=== PATIENT | female | born 1945 | race Caucasian/White ===

== ENCOUNTER 2021-08-31 17:06 | Inpatient (IN) | payer MEDICARE, OTHER ==
[2021-08-31 18:09] LABS: Anisocytosis Slight; Basophils % (A) 0 %; Eosinophils # (A) 0.3 k/uL (0-0.7); Eosinophils % (A) 3 %; HCT 27.6 % (34.0-46.0); HGB 9.1 gm/dL (11.4-16.0); Lymphocytes # (A) 1.9 k/uL (1.0-4.8); Lymphocytes % (A) 23 %; MCH 27.2 pg (25.0-35.0); MCV 82.4 fL (80.0-100.0); Mean Platelet Volume 9.1; Monocytes # (A) 0.5 k/uL (0-1.0); Monocytes % (A) 6 %; Neutrophils # (A) 5.4 k/uL (1.3-7.7); Neutrophils % (A) 65 %; Platelet Count 167 k/uL (150-450); RBC 3.35 m/uL (3.80-5.40); RDW 17.8 % (11.5-15.5); WBC 8.3 k/uL (3.8-10.6)
[2021-08-31 18:24] LABS: Albumin 3.1 g/dL (3.5-5.0); Calcium 8.9 mg/dL (8.4-10.2); Magnesium 1.3 mg/dL (1.6-2.3); Potassium 4.4 mmol/L (3.5-5.1); Total Bilirubin 0.4 mg/dL (0.2-1.3); Total Protein 6.1 g/dL (6.3-8.2)
[2021-08-31 18:26] LABS: Partial Thromboplastin Time 22.3 sec (22.0-30.0); Prothrombin Time 10.6 sec (9.0-12.0)
--- NOTE | 2021-08-31 19:17 | US ---
EXAMINATION TYPE: US venous doppler duplex LE LT DATE OF EXAM: 08/31/2021 5:43 PM COMPARISON: NONE CLINICAL HISTORY: swelling, pain. Patient fell and scraped her left knee. She states no pain or swell ing SIDE PERFORMED: Left TECHNIQUE: The lower extremity deep venous system is examined utilizing real time linear array sonog gerson with graded compression, doppler sonography and color-flow sonography. VESSELS IMAGED: Common Femoral Vein Deep Femoral Vein Greater Saphenous Vein * Femoral Vein Popliteal Vein Small Saphenous Vein * Proximal Calf Veins (* superficial vessels) FINDINGS: Grayscale, color doppler, spectral doppler imaging performed of the deep veins of the lower extremities. There is normal flow, compressibility, vascular waveforms. IMPRESSION: Negative for DVT, left lower extremity.
[2021-08-31] MEDS ORDERED: NALOXONE 0.4 MG/ML 1 ML VIAL IV PRN (20:15)
--- NOTE | 2021-08-31 20:15 | ED ---
Chest Pain HPI - General Chief Complaint: Chest Pain Stated Complaint: Chest Pain Time Seen by Provider: 08/31/21 17:10 Source: patient, EMS Mode of arrival: EMS Limitations: no limitations - History of Present Illness Initial Comments: 76-year-old female presents to the emergency room as a transfer from [facility]. She does have a significant history of coronary disease with "9 stents" in her heart. States that there are placed at [facility]. He was out shopping today when she had sudden onset of crushing chest pain. She is taken in the [facility] by EMS. Laboratory studies demonstrated a troponin of 0.039. They did not heparinize the patient as she had a history of a subdural from a fall earlier this year. They transferred her here for cardiac evaluation. Upon arrival patient states that the pain is only 2 out of 10. It was improved with morphine. States that she took "10 nitro tablets" and did not have any improvement. She denies shortness of breath. Admits to some nausea without vomiting. No diaphoresis. Patient does have some slurred speech which is chronic from a previous stroke. Patient is not currently on any blood thinners. On physical exam patient has notable swelling to the left lower extremity. States that she injured it earlier today. Denies history of DVT or PE. She was given an aspirin at the outside facility. No other alleviating, precipitating or modifying factors - Related Data Home Medications Medication Instructions Recorded Confirmed Atorvastatin Calcium [Lipitor] 40 mg PO HS 08/31/21 08/31/21 Cholecalciferol [Vitamin D3 (25 50 mcg PO DAILY 08/31/21 08/31/21 Mcg = 1000 Iu)] Ezetimibe [Zetia] 10 mg PO DAILY 08/31/21 08/31/21 Ibuprofen [Motrin] 800 mg PO Q8H PRN 08/31/21 08/31/21 Isosorbide Dinitrate 5 mg PO BID 08/31/21 08/31/21 Nitroglycerin Sl Tabs [Nitrostat] 0.4 mg SL Q5M PRN 08/31/21 08/31/21 Omeprazole 40 mg PO DAILY 08/31/21 08/31/21 Pramipexole [Mirapex] 1 mg PO HS 08/31/21 08/31/21 Scopolamine [Scopolamine 1 MG/72 1 patch TRANSDERM Q72H PRN 08/31/21 08/31/21 HR patch] Sertraline HCl [Zoloft] 100 mg PO DAILY 08/31/21 08/31/21 Sotalol [Betapace] 80 mg PO DAILY 08/31/21 08/31/21 bisacodyL [Dulcolax] 10 mg RECTAL DAILY PRN 08/31/21 08/31/21 clonazePAM [KlonoPIN] 0.5 mg PO BID PRN 08/31/21 08/31/21 lisinopriL [Zestril] 2.5 mg PO DAILY 08/31/21 08/31/21 Allergies Allergy/AdvReac Type Severity Reaction Status Date / Time gabapentin [From Neurontin] Allergy Unknown Verified 08/31/21 18:21 lactulose Allergy Unknown Verified 08/31/21 18:21 oxycodone Allergy Unknown Verified 08/31/21 18:21 ropinirole [From Requip] Allergy Unknown Verified 08/31/21 18:21 ticagrelor [From Brilinta] Allergy Unknown Verified 08/31/21 18:21 cyclobenzaprine AdvReac Hallucinati Verified 08/31/21 18:21 ons Review of Systems ROS Statement: Those systems with pertinent positive or pertinent negative responses have been documented in the HPI. ROS Other: All systems not noted in ROS Statement are negative. EKG Findings - EKG Comments: EKG Findings:: EKG at 1833 demonstrates sinus rhythm with PACs and PVCs. Rate of 81. CA interval 172. Distress 108. QTC of 487. No acute ST segment elevation. Inverted T-wave in 3 and aVF. Repeat EKG at 2035 demonstrates a sinus rhythm with PACs. Rate of 85. CA interval 160. QRS 116. QTC of 509. No acute ST segment elevation or depression. Past Medical History Past Medical History: Atrial Fibrillation, Blood Disorder, Cancer, Chest Pain / Angina, Heart Failure, CVA/TIA, Diabetes Mellitus, GERD/Reflux, Hyperlipidemia, Hypertension, Myocardial Infarction (OR), Renal Disease, Respiratory Disorder, Sleep Apnea/CPAP/BIPAP, Thyroid Disorder, Vascular Disorder History of Any Multi-Drug Resistant Organisms: None Reported Past Surgical History: Back Surgery, Breast Surgery, Heart Catheterization With Stent Past Psychological History: Anxiety, Depression Smoking Status: Current every day smoker Past Alcohol Use History: None Reported Past Drug Use History: None Reported - Past Family History Father Family Medical History: Cancer, Coronary Artery Disease (CAD) Mother Family Medical History: Cancer General Exam Limitations: physical limitation (some dysarthria after previous stroke) General appearance: alert, in no apparent distress Head exam: Present: atraumatic, normocephalic, normal inspection Eye exam: Present: normal appearance, PERRL, EOMI. Absent: scleral icterus, conjunctival injection, periorbital swelling ENT exam: Present: normal exam, mucous membranes moist Neck exam: Present: normal inspection. Absent: tenderness, meningismus, lymphadenopathy Respiratory exam: Present: normal lung sounds bilaterally. Absent: respiratory distress, wheezes, rales, rhonchi, stridor Cardiovascular Exam: Present: regular rate, normal rhythm, normal heart sounds. Absent: systolic murmur, diastolic murmur, rubs, gallop, clicks GI/Abdominal exam: Present: soft, normal bowel sounds. Absent: distended, tenderness, guarding, rebound, rigid Extremities exam: Present: full ROM, normal capillary refill, pedal edema (left leg). Absent: tenderness, joint swelling, calf tenderness Back exam: Present: normal inspection Neurological exam: Present: alert, oriented X3, CN II-XII intact Psychiatric exam: Present: normal affect, normal mood Skin exam: Present: warm, dry, intact, normal color. Absent: rash Course Vital Signs 08/31/21 08/31/21 08/31/21 17:10 19:07 20:27 Temperature 98.0 F Pulse Rate 69 85 75 Respiratory 16 18 16 Rate Blood Pressure 162/78 172/83 159/92 O2 Sat by Pulse 98 97 97 Oximetry Chest Pain MDM - MDM Upon arrival patient is placed into room 23. A thorough history and physical exam was performed. Repeat laboratory studies are performed. Troponin 0.053. Patient already received an aspirin. Patient will not be heparinized due to recent history of subdural hemorrhage. Patient does have recurrence of her pain and a repeat EKG is performed which demonstrates no acute ST segment elevation. Recommended admission in order to continue to trend her troponins. Patient agreed to this. Spoke with Brendan from [facility] who agreed to admit the patient. She was taken to the floor in stable condition Disposition Clinical Impression: Chest pain Disposition: ADMITTED IP TO THIS HOSP Condition: Stable Is patient prescribed a controlled substance at d/c from ED?: No Decision to Admit Reason: Admit from EC Decision Date: 08/31/21 Decision Time: 20:15
[2021-08-31 21:19] LABS: Glucose,Whole Blood 195 mg/dL (75-99)
[2021-08-31] MEDS: MORPHINE SULFATE 4 MG/ML SYRINGE IV PRN (21:58)
[2021-08-31] MEDS: MAGNESIUM SULFATE-D5W PMX 1 GM in DEXTROSE/WATER 1 100ML.BAG IVPB SCH ×2 (22:00→23:44)
[2021-08-31] MEDS ORDERED: NITROGLYCERIN SL TABS 0.4 MG TAB SUBLINGUAL PRN (22:55)
[2021-08-31] MEDS: ATORVASTATIN 40 MG TAB PO SCH (23:45)
[2021-08-31] MEDS: PRAMIPEXOLE 1 MG TAB PO SCH (23:45)
[2021-08-31] MEDS: NITROGLYCERIN OINT 1 INCH/GM PACKET TOPICAL SCH (23:45)
[2021-08-31] MEDS: carvediloL 3.125 MG TAB PO SCH (23:45)
[2021-08-31] MEDS: ISOSORBIDE DINITRATE 10 MG TAB PO SCH (23:45)
[2021-09-01] MEDS: MORPHINE SULFATE 4 MG/ML SYRINGE IV PRN (04:10)
[2021-09-01 06:16] LABS: Glucose,Whole Blood 160 mg/dL (75-99)
[2021-09-01] MEDS: carvediloL 3.125 MG TAB PO SCH (06:20)
[2021-09-01] MEDS: NITROGLYCERIN OINT 1 INCH/GM PACKET TOPICAL SCH ×4 (06:23→23:33)
[2021-09-01 07:58] LABS: Anisocytosis Slight; Basophils % (A) 0 %; Eosinophils # (A) 0.2 k/uL (0-0.7); Eosinophils % (A) 3 %; HCT 25.2 % (34.0-46.0); HGB 7.9 gm/dL (11.4-16.0); Hypochromasia Slight; Lymphocytes # (A) 1.2 k/uL (1.0-4.8); Lymphocytes % (A) 19 %; MCH 27.1 pg (25.0-35.0); MCHC 31.4 g/dL (31.0-37.0); MCV 86.3 fL (80.0-100.0); Mean Platelet Volume 8.9; Monocytes # (A) 0.4 k/uL (0-1.0); Monocytes % (A) 6 %; Neutrophils # (A) 4.3 k/uL (1.3-7.7); Neutrophils % (A) 69 %; Platelet Count 142 k/uL (150-450); RBC 2.92 m/uL (3.80-5.40); RDW 17.7 % (11.5-15.5); WBC 6.2 k/uL (3.8-10.6)
[2021-09-01 08:19] LABS: Magnesium 1.8 mg/dL (1.6-2.3); Potassium 4.2 mmol/L (3.5-5.1)
[2021-09-01] MEDS: ISOSORBIDE DINITRATE 10 MG TAB PO SCH ×2 (08:47→20:32)
[2021-09-01] MEDS: LOSARTAN 25 MG TAB PO SCH (10:06)
--- NOTE | 2021-09-01 10:39 | CT ---
EXAMINATION TYPE: CT brain wo con DATE OF EXAM: 09/01/2021 HISTORY: Fall, weakness, ruling out hematoma CT DLP: 1143.4 mGycm. Automated Exposure Control for Dose Reduction was Utilized. TECHNIQUE: CT scan of the head is performed without contrast. COMPARISON: None. FINDINGS: There is no acute intracranial hemorrhage or midline shift identified. There is mild to m oderate diffuse ventricular and sulcal prominence consistent with diffuse age-related cerebral atroph y. There is moderate low-attenuation in the periventricular white matter consistent with chronic sma ll vessel ischemic change. Old infarct or encephalomalacia left coronal radiata posterior inferior l eft frontal region. The calvarium is intact. The globes are intact and the visualized sinuses are marielena ar. IMPRESSION: No acute intracranial hemorrhage or midline shift. There is mild to moderate diffuse ag e-related cerebral atrophy and moderate chronic small vessel ischemic change along with old left-side d posterior inferior frontal lobe infarct all noted.
[2021-09-01] MEDS ORDERED: HEPARIN SODIUM 1,000 UN/ML (10ML VL) IV ONE (11:48)
[2021-09-01] MEDS ORDERED: HEPARIN SODIUM 1,000 UN/ML (10ML VL) IV PRN (11:48)
[2021-09-01 11:58] LABS: Glucose,Whole Blood 134 mg/dL (75-99)
[2021-09-01] MEDS ORDERED: HEPARIN SOD,PORK IN 0.45% NACL 25,000 UNIT in 0.45% NACL 1 250ML.BAG IV SCH (12:00)
--- NOTE | 2021-09-01 12:00 | ECHOF ---
Referral Reason:Chest pain MEASUREMENTS -------- HEIGHT: 165.1 cm WEIGHT: 56.2 kg BP: 125/66 RVIDd: 2.8 cm (< 3.3) IVSd: 1.1 cm (0.6 - 1.1) LVIDd: 4.2 cm (3.9 - 5.3) LVPWd: 1.3 cm (0.6 - 1.1) IVSs: 1.7 cm LVIDs: 3.0 cm LVPWs: 1.7 cm LA Diam: 3.9 cm (2.7 - 3.8) LAESV Index (A-L): 34.28 ml/m Ao Diam: 3.0 cm (2.0 - 3.7) MV EXCURSION: 14.967 mm (> 18.000) MV EF SLOPE: 61 mm/s (70 - 150) EPSS: 0.4 cm MV E Miguel: 1.11 m/s MV DecT: 248 ms MV A Miguel: 1.28 m/s MV E/A Ratio: 0.87 RAP: 5.00 mmHg RVSP: 35.33 mmHg FINDINGS -------- Sinus rhythm. This was a technically adequate study. The left ventricular size is normal. There is mild concentric left ventricular hypertrophy. Overa ll left ventricular systolic function is normal with, an EF between 60 - 65 %. The right ventricle is normal in size. LA is moderately dilated 34-39 ml/m2 The right atrium is normal in size. Interatrial and interventricular septum intact. There is mild aortic valve sclerosis. The mitral valve leaflets are mildly thickened. Mild mitral annular calcification present. Mild tricuspid regurgitation present. There is mild pulmonary hypertension. The right ventricular systolic pressure, as measured by Doppler, is 35.33mmHg. Trace/mild (physiologic) pulmonic regurgitation. The aortic root size is normal. Normal inferior vena cava with normal inspiratory collapse consistent with estimated right atrial pre ssure of 5 mmHg. There is no pericardial effusion. CONCLUSIONS -------- 1. The left ventricular size is normal. 2. There is mild concentric left ventricular hypertrophy. 3. Overall left ventricular systolic function is normal with, an EF between 60 - 65 %. 4. LA is moderately dilated 34-39 ml/m2 5. There is mild aortic valve sclerosis. 6. The mitral valve leaflets are mildly thickened. 7. Mild mitral annular calcification present. 8. Mild tricuspid regurgitation present. 9. There is mild pulmonary hypertension. 10. The right ventricular systolic pressure, as measured by Doppler, is 35.33mmHg. 11. Trace/mild (physiologic) pulmonic regurgitation. 12. There is no pericardial effusion. [employer] SPECIALIST: Phyllis Meléndez RDCS
[2021-09-01 13:07] LABS: Anisocytosis Slight; Basophils % (A) 0 %; Eosinophils # (A) 0.2 k/uL (0-0.7); Eosinophils % (A) 3 %; HCT 26.6 % (34.0-46.0); HGB 8.6 gm/dL (11.4-16.0); Hypochromasia Slight; Lymphocytes % (A) 13 %; MCH 27.4 pg (25.0-35.0); MCHC 32.4 g/dL (31.0-37.0); MCV 84.3 fL (80.0-100.0); Mean Platelet Volume 9.2; Monocytes # (A) 0.3 k/uL (0-1.0); Monocytes % (A) 4 %; Neutrophils # (A) 6.4 k/uL (1.3-7.7); Neutrophils % (A) 80 %; Platelet Count 160 k/uL (150-450); RBC 3.16 m/uL (3.80-5.40); RDW 17.8 % (11.5-15.5)
--- NOTE | 2021-09-01 13:07 | P.CNNES ---
History of Present Illness Consult date: 09/01/21 Requesting physician: Bear Williamson Reason for Consult: heparin drip; hx of subdural hematoma 4 months ago, hx of cva History of Present Illness: This is a 76-year-old woman with medical history of stroke with residual right leg weakness, subdural hematoma 05/2021 from a fall, atrial fibrillation, diabetes mellitus, coronary artery disease status post stent, hypertension, hypothyroidism who was transferred from outside facility for for further evaluation of chest pain. Neurology is consulted for use of heparin drip especially with a history of a subdural about 4 month ago. She stated that she had a stroke in general 2020 and she had residual some weakness over the right leg and then the she has these recurrent falls and she had a fall in May as a result she had some subdural she had workup for her stroke as well as for the subdural and she said that she has upcoming appointment with Dr. Krishnan for neurological care. She denies a being on anticoagulation for the atrial fibrillation that. She said that she intermittently takes the low dose aspirin a home. She said that she uses a walker at home and feel dizzy since was on so many medication in the past. She denies off any focal weakness, numbness, visual disturbance, difficulty getting her words out. Regarding the home medication the patient is on Lipitor 40 mg daily at bedtime. Most recent vitals: His blood pressure of 125/66, heart rate of 67, respiratory of 18, temperature of 98.1 Fahrenheit oral pulse ox of 95% room air. Patient the most recent serum glucose is 137, potassium is 4.2, sodium is 140, creatinine is 0.92, the troponin is the most recent one is up 0.076 and slightly trending up. CT of the head on 09/01/2021 is reported as acute intracranial hemorrhage or midline shift. There is mild to moderate diffuse age-related cerebral atrophy and moderate chronic small vessel ischemic change along with old left-sided posterior inferior frontal lobe infarct. In the body reported it is mentioned that there is old infarct or encephalomalacia over the left manuel radiata posterior inferior left inferior region Review of Systems Review of system: The 12 point system was reviewed and apparent positive and negative per HPI. Past Medical History Past Medical History: Atrial Fibrillation, Blood Disorder, Cancer, Chest Pain / Angina, Heart Failure, CVA/TIA, Diabetes Mellitus, GERD/Reflux, Hyperlipidemia, Hypertension, Myocardial Infarction (NM), Renal Disease, Respiratory Disorder, Sleep Apnea/CPAP/BIPAP, Thyroid Disorder, Vascular Disorder Additional Past Medical History / Comment(s): breast cancer and ovarian. Radiation (not current), subdural hematoma may 2020 Last Myocardial Infarction Date:: 2018 History of Any Multi-Drug Resistant Organisms: None Reported Past Surgical History: Back Surgery, Breast Surgery, Heart Catheterization With Stent Additional Past Surgical History / Comment(s): 10 heart stents Past Anesthesia/Blood Transfusion Reactions: No Reported Reaction Date of Last Stent Placement:: 2018 Past Psychological History: Anxiety, Depression Smoking Status: Current every day smoker Past Alcohol Use History: None Reported Past Drug Use History: None Reported - Past Family History Father Family Medical History: Cancer, Coronary Artery Disease (CAD) Mother Family Medical History: Cancer Medications and Allergies Home Medications Medication Instructions Recorded Confirmed Type Atorvastatin Calcium [Lipitor] 40 mg PO HS 08/31/21 08/31/21 History Cholecalciferol [Vitamin D3 (25 50 mcg PO DAILY 08/31/21 08/31/21 History Mcg = 1000 Iu)] Ezetimibe [Zetia] 10 mg PO DAILY 08/31/21 08/31/21 History Ibuprofen [Motrin] 800 mg PO Q8H PRN 08/31/21 08/31/21 History Isosorbide Dinitrate 5 mg PO BID 08/31/21 08/31/21 History Nitroglycerin Sl Tabs [Nitrostat] 0.4 mg SL Q5M PRN 08/31/21 08/31/21 History Omeprazole 40 mg PO DAILY 08/31/21 08/31/21 History Pramipexole [Mirapex] 1 mg PO HS 08/31/21 08/31/21 History Scopolamine [Scopolamine 1 MG/72 1 patch TRANSDERM Q72H PRN 08/31/21 08/31/21 History HR patch] Sertraline HCl [Zoloft] 100 mg PO DAILY 08/31/21 08/31/21 History Sotalol [Betapace] 80 mg PO DAILY 08/31/21 08/31/21 History bisacodyL [Dulcolax] 10 mg RECTAL DAILY PRN 08/31/21 08/31/21 History clonazePAM [KlonoPIN] 0.5 mg PO BID PRN 08/31/21 08/31/21 History lisinopriL [Zestril] 2.5 mg PO DAILY 08/31/21 08/31/21 History Allergies Allergy/AdvReac Type Severity Reaction Status Date / Time gabapentin [From Neurontin] Allergy Unknown Verified 08/31/21 18:21 lactulose Allergy Unknown Verified 08/31/21 18:21 oxycodone Allergy Unknown Verified 08/31/21 18:21 ropinirole [From Requip] Allergy Unknown Verified 08/31/21 18:21 ticagrelor [From Brilinta] Allergy Unknown Verified 08/31/21 18:21 cyclobenzaprine AdvReac Hallucinati Verified 08/31/21 18:21 ons Physical Examination - Vital Signs Vital Signs: Vital Signs Temp Pulse Pulse Resp BP BP Pulse Ox 09/01/21 08:02 98.1 F 67 18 125/66 95 09/01/21 06:19 103/54 09/01/21 03:54 98.3 F 70 16 95/54 95 09/01/21 00:00 97.7 F 78 18 173/74 100 08/31/21 21:15 97.7 F 85 18 185/81 97 08/31/21 20:27 75 16 159/92 97 08/31/21 19:07 85 18 172/83 97 08/31/21 17:10 98.0 F 69 16 162/78 98 Intake and Output 08/31/21 09/01/21 09/01/21 22:59 06:59 14:59 Intake Total 120 Balance 120 Intake: Oral 120 Other: Voiding Method Bedside Commode Bedside Commode # Voids 2 1 Weight 55.792 kg 56.5 kg GENERAL: The patient is lying in bed and is not in acute distress. CHEST: The heart rate is regular rate rhythm. No murmurs to auscultation. LUNG: Clear to auscultation bilaterally no wheezing noted throughout. Not la bored breathing. ABDOMEN/GI: Bowel sounds present in all 4 quadrants. No tenderness to palpation throughout. NEUROLOGICAL: Higher mental function: The patient is awake, alert, oriented to self, place and time. Patient is following commands. No aphasia and no neglect. Cranial nerves: The pupils are round, equal and reactive to light and accommodation. Visual jefferson are full to confrontation throughout. Extraocular movement is intact no nystagmus is noted. Facial sensation is normal to touch throughout. The facial strength is mild right lower facial weakness. Hearing is mild to moderately decreased bilaterally to hand rub. Tongue is midline and moved [id number] without any difficulty. Has mild to moderate dysarthria is noted. Shoulder shrug is normal bilaterally. Motor: The strength is 5 over 5 throughout. Normal tone and bulk. Cerebellum: Normal finger to nose bilaterally. Sensation: Sensation is normal to touch throughout. Reflexes (right/left): 2+ throughout. Plantars are downgoing bilaterally. Results - Laboratory Findings CBC and BMP: 09/01/21 12:47 09/01/21 07:32 Abnormal Lab Findings: Abnormal Labs 08/31/21 08/31/21 08/31/21 18:01 18:01 18:01 RBC 3.35 L Hgb 9.1 L Hct 27.6 L RDW 17.8 H Plt Count Chloride 110 H BUN 21 H Glucose 121 H POC Glucose (mg/dL) Magnesium 1.3 L Troponin I 0.053 H* Total Protein 6.1 L Albumin 3.1 L 08/31/21 08/31/21 09/01/21 21:18 21:23 00:03 RBC Hgb Hct RDW Plt Count Chloride BUN Glucose POC Glucose (mg/dL) 195 H Magnesium Troponin I 0.068 H* 0.076 H* Total Protein Albumin 09/01/21 09/01/21 09/01/21 06:15 07:32 07:32 RBC 2.92 L Hgb 7.9 L Hct 25.2 L RDW 17.7 H Plt Count 142 L Chloride 109 H BUN Glucose 137 H POC Glucose (mg/dL) 160 H Magnesium Troponin I Total Protein Albumin Assessment and Plan Assessment: Acute Chest pain with elevated troponin Old stroke over (12/2020) the left manuel radiata and left frontal region Old left subdural (05/2021 from fall)--that is not seen on this current CT head Recurrent falls Atrial fibrillation not on anticoagulation Diabetes mellitus History of coronary artery disease status post stent Hypothyroidism History of hypertension Plan: From a neurological perspective it it is safe to use heparin drip since there is no any bleeding that's acute or subacute. There is no bleeding seen on current CT. This patient has history of atrial fibrillation and will defer management to ca rdiology team. I think because of the recurrent falls possibly to avoid anticoagulation to avoid any bleed but again we'll defer to cardiology team. Possibly consider starting the patient on aspirin 81 mg daily if patient is not on discharge on anticoagulants. Continue Lipitor 40 mg daily for secondary stroke prophylaxis. Every 4 hour neuro checks Speech therapy is consulted. Cardiology is on board. Will defer the rest of the workup to the primary team Upon discharge the patient needs to follow-up with a neurologist as an outpatient within 2 weeks (she has an appointment with Dr. Krishnan this month). The plan is discussed with the patient's nurse. Thank you for the consultation. UPDATE: Was notified but nurse the patient had a seizure-like activity lasting for about 2-3 minutes in which the whole body was shaken. Unsure if she had initial shaken on one side that evolved to the whole body. She didn't have any fixed gaze deviation. She did not have any foaming around the mouth, uncertain if she had urinary or bowel incontinence. She was post ictal. Therefore patient has new onset seizure likely due to her history of stroke. Patient was given 2 mg Ativan and I loaded the patient with Keppra 1 g. I started the patient on Keppra 500 every 12 hours. Ordered routine EEG. Rasheed Solomon M.D. Neuro-hospitalist Time with Patient: Greater than 30
[2021-09-01 13:21] LABS: Partial Thromboplastin Time 22.2 sec (22.0-30.0); Prothrombin Time 10.9 sec (9.0-12.0)
[2021-09-01] MEDS ORDERED: LORazepam 2 MG/ML INJ ONE (15:27)
[2021-09-01] MEDS ORDERED: levETIRAcetam IV 1,000 MG in SALINE 1 100ML.BAG IVPB STA (15:41)
[2021-09-01] MEDS ORDERED: LORazepam 2 MG/ML INJ IV STA (15:50)
--- NOTE | 2021-09-01 16:14 | P.HPIM ---
History of Present Illness H&P Date: 09/01/21 Chief Complaint: Chest pain 76-year-old female presents to the emergency room as a transfer from [facility]. She does have a significant history of coronary disease with "9 stents" in her heart. States that there are placed at [facility]. He was out shopping today when she had sudden onset of crushing chest pain. She is taken in the [facility] by EMS. Laboratory studies demonstrated a troponin of 0.039. They did not heparinize the patient as she had a history of a subdural from a fall earlier this year. They transferred her here for cardiac evaluation. Upon arrival patient states that the pain is only 2 out of 10. It was improved with morphine. States that she took "10 nitro tablets" and did not have any improvement. She denies shortness of breath. Admits to some nausea without vomiting. No diaphoresis. Patient does have some slurred speech which is chronic from a previous stroke. Patient is not currently on any blood thinne rs. On physical exam patient has notable swelling to the left lower extremity. States that she injured it earlier today. Denies history of DVT or PE. She was given an aspirin at the outside facility. No other alleviating, precipitating or modifying factors While in ED blood work was repeated which revealed troponin of 0.053; patient was given oral aspirin; heparin was not initiated due to history of subdural hematoma; patient continued to have recurrent episodes of chest pain ED and was recommended admission with cardiology evaluation Review of Systems REVIEW OF SYSTEMS: CONSTITUTIONAL: No fever, no malaise, no fatigue. HEENT: No recent visual problems or hearing problems. Denied any sore throat. CARDIOVASCULAR: No chest pain, orthopnea, PND, no palpitations, no syncope. PULMONARY: No shortness of breath, no cough, no hemoptysis. GASTROINTESTINAL: No diarrhea, no nausea, no vomiting, no abdominal pain. NEUROLOGICAL: No headaches, no weakness, no numbness. HEMATOLOGICAL: Denies any bleeding or petechiae. GENITOURINARY: Denies any burning micturition, frequency, or urgency. MUSCULOSKELETAL/RHEUMATOLOGICAL: Denies any joint pain, swelling, or any muscle pain. ENDOCRINE: Denies any polyuria or polydipsia. The rest of the 14-point review of systems is negative. Past Medical History Past Medical History: Atrial Fibrillation, Blood Disorder, Cancer, Chest Pain / Angina, Heart Failure, CVA/TIA, Diabetes Mellitus, GERD/Reflux, Hyperlipidemia, Hypertension, Myocardial Infarction ([place]), Renal Disease, Respiratory Disorder, Sleep Apnea/CPAP/BIPAP, Thyroid Disorder, Vascular Disorder Additional Past Medical History / Comment(s): breast cancer and ovarian. Radiation (not current), subdural hematoma may 2020 Last Myocardial Infarction Date:: 2018 History of Any Multi-Drug Resistant Organisms: None Reported Past Surgical History: Back Surgery, Breast Surgery, Heart Catheterization With Stent Additional Past Surgical History / Comment(s): 10 heart stents Past Anesthesia/Blood Transfusion Reactions: No Reported Reaction Date of Last Stent Placement:: 2018 Past Psychological History: Anxiety, Depression Smoking Status: Current every day smoker Past Alcohol Use History: None Reported Past Drug Use History: None Reported - Past Family History Father Family Medical History: Cancer, Coronary Artery Disease (CAD) Mother Family Medical History: Cancer Medications and Allergies Home Medications Medication Instructions Recorded Confirmed Type Atorvastatin Calcium [Lipitor] 40 mg PO HS 08/31/21 08/31/21 History Cholecalciferol [Vitamin D3 (25 50 mcg PO DAILY 08/31/21 08/31/21 History Mcg = 1000 Iu)] Ezetimibe [Zetia] 10 mg PO DAILY 08/31/21 08/31/21 History Ibuprofen [Motrin] 800 mg PO Q8H PRN 08/31/21 08/31/21 History Isosorbide Dinitrate 5 mg PO BID 08/31/21 08/31/21 History Nitroglycerin Sl Tabs [Nitrostat] 0.4 mg SL Q5M PRN 08/31/21 08/31/21 History Omeprazole 40 mg PO DAILY 08/31/21 08/31/21 History Pramipexole [Mirapex] 1 mg PO HS 08/31/21 08/31/21 History Scopolamine [Scopolamine 1 MG/72 1 patch TRANSDERM Q72H PRN 08/31/21 08/31/21 History HR patch] Sertraline HCl [Zoloft] 100 mg PO DAILY 08/31/21 08/31/21 History Sotalol [Betapace] 80 mg PO DAILY 08/31/21 08/31/21 History bisacodyL [Dulcolax] 10 mg RECTAL DAILY PRN 08/31/21 08/31/21 History clonazePAM [KlonoPIN] 0.5 mg PO BID PRN 08/31/21 08/31/21 History lisinopriL [Zestril] 2.5 mg PO DAILY 08/31/21 08/31/21 History Allergies Allergy/AdvReac Type Severity Reaction Status Date / Time gabapentin [From Neurontin] Allergy Unknown Verified 08/31/21 18:21 lactulose Allergy Unknown Verified 08/31/21 18:21 oxycodone Allergy Unknown Verified 08/31/21 18:21 ropinirole [From Requip] Allergy Unknown Verified 08/31/21 18:21 ticagrelor [From Brilinta] Allergy Unknown Verified 08/31/21 18:21 cyclobenzaprine AdvReac Hallucinati Verified 08/31/21 18:21 ons Physical Exam Vitals: Vital Signs Temp Pulse Pulse Resp BP BP Pulse Ox 09/01/21 08:02 98.1 F 67 18 125/66 95 09/01/21 06:19 103/54 09/01/21 03:54 98.3 F 70 16 95/54 95 09/01/21 00:00 97.7 F 78 18 173/74 100 08/31/21 21:15 97.7 F 85 18 185/81 97 08/31/21 20:27 75 16 159/92 97 08/31/21 19:07 85 18 172/83 97 08/31/21 17:10 98.0 F 69 16 162/78 98 Intake and Output 08/31/21 09/01/21 09/01/21 22:59 06:59 14:59 Intake Total 120 Balance 120 Intake: Oral 120 Other: Voiding Method Bedside Commode Bedside Commode # Voids 2 1 Weight 55.792 kg 56.5 kg - Constitutional General appearance: Present: average body habitus, cooperative, no acute distress - EENT Eyes: Present: anicteric sclerae, EOMI, PERRLA, normal appearance ENT: Present: hearing grossly normal, normal oropharynx Ears: bilateral: normal - Neck Neck: Present: normal ROM. Absent: lymphadenopathy, rigidity, thyromegaly Carotids: negative: bruit present Thyroid: bilateral: normal size, negative: enlarged, nodule - Respiratory Respiratory: bilateral: CTA, negative: rales, rhonchi, wheezing - Cardiovascular Rhythm: regular Heart sounds: normal: S1, S2 Abnormal Heart Sounds: Absent: systolic murmur, diastolic murmur - Gastrointestinal General gastrointestinal: Present: normal bowel sounds, soft. Absent: distended, organomegaly, tenderness - Genitourinary Genitourinary Comment(s): deferred - Integumentary Integumentary: Present: normal turgor. Absent: jaundiced, rash, ulcer - Neurologic Neurologic: Present: CNII-XII intact. Absent: focal deficits - Musculoskeletal Musculoskeletal: Present: gait normal, strength equal bilaterally - Psychiatric Psychiatric: Present: A&O x's 3, appropriate affect, intact judgment & insight Results CBC & Chem 7: 09/01/21 12:47 09/01/21 07:32 Labs: Abnormal Lab Results - Last 24 Hours (Table) 08/31/21 08/31/21 08/31/21 Range/Units 18:01 18:01 18:01 RBC 3.35 L (3.80-5.40) m/uL Hgb 9.1 L (11.4-16.0) gm/dL Hct 27.6 L (34.0-46.0) % RDW 17.8 H (11.5-15.5) % Plt Count (150-450) k/uL Chloride 110 H (98-107) mmol/L BUN 21 H (7-17) mg/dL Glucose 121 H (74-99) mg/dL POC Glucose (mg/dL) (75-99) mg/dL Magnesium 1.3 L (1.6-2.3) mg/dL Troponin I 0.053 H* (0.000-0.034) ng/mL Total Protein 6.1 L (6.3-8.2) g/dL Albumin 3.1 L (3.5-5.0) g/dL 08/31/21 08/31/21 09/01/21 Range/Units 21:18 21:23 00:03 RBC (3.80-5.40) m/uL Hgb (11.4-16.0) gm/dL Hct (34.0-46.0) % RDW (11.5-15.5) % Plt Count (150-450) k/uL Chloride (98-107) mmol/L BUN (7-17) mg/dL Glucose (74-99) mg/dL POC Glucose (mg/dL) 195 H (75-99) mg/dL Magnesium (1.6-2.3) mg/dL Troponin I 0.068 H* 0.076 H* (0.000-0.034) ng/mL Total Protein (6.3-8.2) g/dL Albumin (3.5-5.0) g/dL 09/01/21 09/01/21 09/01/21 Range/Units 06:15 07:32 07:32 RBC 2.92 L (3.80-5.40) m/uL Hgb 7.9 L (11.4-16.0) gm/dL Hct 25.2 L (34.0-46.0) % RDW 17.7 H (11.5-15.5) % Plt Count 142 L (150-450) k/uL Chloride 109 H (98-107) mmol/L BUN (7-17) mg/dL Glucose 137 H (74-99) mg/dL POC Glucose (mg/dL) 160 H (75-99) mg/dL Magnesium (1.6-2.3) mg/dL Troponin I (0.000-0.034) ng/mL Total Protein (6.3-8.2) g/dL Albumin (3.5-5.0) g/dL Thrombosis Risk Factor Assmnt - Choose All That Apply Each Risk Factor Represents 3 Points: Age 75 years or older Thrombosis Risk Factor Assessment Total Risk Factor Score: 3 Thrombosis Risk Factor Assessment Level: Moderate Risk Assessment and Plan Assessment: 1. Chest pain/elevated troponin; non-STEMI Patient is started on aspirin in ED along with statins, nitrates; patient has been placed on Coreg 6.25 mg twice a day; isosorbide 5 mg by mouth twice a day -We will monitor EKG and trend troponin; 2-D echo; further recommendations once patient is evaluated by cardiology 2. Hypertension; Coreg 6.25 mg twice a day; losartan 25 mg daily 3. Hyperlipidemia; Lipitor 40 mg by mouth daily at bedtime 4. Depression/anxiety; we will continue with home dose of Zoloft 100 mg daily along with Klonopin 0.5 mg twice a day 5. Atrial fibrillation; rate controlled on Coreg 6.25 mg twice a day; currently not on anticoagulation therapy; await cardiology recommendations 6. History of CVA/TIA; patient is currently on aspirin and Lipitor; neurology on board and recommending for patient to be started on Keppra 1000 mg IV 1 followed by 500 mg every 12 hours; patient has been cleared for IV heparin use if deemed necessary by cardiology but overall is recommended to avoid anticoagulation due to history of recurrent falls; aspirin and Lipitor will be recommended for secondary stroke prophylaxis DVT prophylaxis; SCDs/subcu heparin CODE STATUS; full code
[2021-09-01 16:46] LABS: Glucose,Whole Blood 185 mg/dL (75-99)
--- NOTE | 2021-09-01 17:08 | CONS ---
CONSULTATION HISTORY OF PRESENT ILLNESS: This is a 76-year-old lady who has been admitted to the hospital upon transfer from [facility]. She has history of CAD with previous stents. The last one was performed probably in 2019, but patient is not a good historian. After much discussion, I noted that she had a circumflex stent in 2013 which was a bare metal stent. This lady also has history of anemia for quite some time. About a year ago she had a CVA from which she has mild residual deficit. In May of this year, she was unsteady on her feet. She fell and hit her head and went on to have a subdural hematoma. She has not been anticoagulated for this reason. She presents here with complaints of chest pain, unresponsive to sublingual nitroglycerin with mild troponin elevation. She is resting comfortably without symptoms. PAST MEDICAL HISTORY: 1. CAD with prior stenting. The last documentation is 2013, but patient claims she had another stent a year and a half ago. 2. Hypertension. 3. Hyperlipidemia. 4. History of CVA about a year ago and a subdural hematoma after a fall 3-4 months ago. 5. History of anemia. MEDICATIONS: Medications at home include Zetia, ibuprofen, Imdur, Betapace 80 mg daily, lisinopril 2.5 mg daily. She also takes atorvastatin 40 mg daily and vitamin D supplements. ALLERGIES: SHE IS ALLERGIC TO BRILINTA, NEURONTIN, REQUIP AND LACTULOSE. EKG revealed a sinus mechanism with sinus tachycardia and inferolateral nonspecific ST changes, RBBB, leftward axis. LABORATORY DATA: Suggests that the troponin is mildly elevated at 0.076 and 0.068. PHYSICAL EXAMINATION: On examination, blood pressure is 120/70, pulse rate is 80 per minute. HEENT unremarkable fundus was not examined by me. NECK: Supple. There is JVD of 1 cm. No carotid bruit. HEART exam reveals S1, S2 with a short systolic murmur at the base. LUNGS revealed bilateral decent air entry. ABDOMEN is soft, nontender. Lower extremities reveal diminished pulses. Central nervous system grossly within normal limits. IMPRESSION: 1. Non-ST elevation [place] in a patient with a prior CAD and multivessel stenting. 2. Anemia. 3. History of stroke about a year ago with residual deficit and recent subdural after a fall. 4. History of hypertension. RECOMMENDATIONS: I am recommending that I will seek a neurology consult to assess regarding the safety of anticoagulation given this history of subdural. The patient will probably require a cardiac catheterization. I will also obtain a CT scan of the head without contrast. We will increase Coreg to 6.25 mg b.i.d., continue her current medications and after clearance from Neurology, we will consider heparin. I will also proceed with cardiac cath after I get the direction from Neurology. I discussed my thoughts in detail with the patient. Her renal function is normal and she is asymptomatic at this time. Thank you very much for the consult. SANCHEZ / IGLESIA: [id number] /
--- NOTE | 2021-09-01 19:18 | EEG ---
ELECTROENCEPHALOGRAM REPORT DATE OF SERVICE: 09/01/2021. CLINICAL HISTORY: This is a 76-year-old woman with history of old left frontal stroke as well as left subdural who has a seizure-like activity today. This video EEG is obtained to evaluate for seizure and epileptiform activity. RELEVANT MEDICATION: Patient received 2 mg Ativan. EEG TYPE: A routine 21-channel EEG is performed with video using the 10/20 electrode placement system. DESCRIPTION: The background consists of diffuse [id number] voltage of 1-2 hertz nonrhythmic delta activity. There is no physiological sleep architecture seen. There is no focal slowing seen. Interictal and ictal is none. ACTIVATION PROCEDURE: Photic stimulation did not evoke a posterior driving response. There is no abnormality during the photic stimulation. Hyperventilation is not performed. CLINICAL INTERPRETATION: This is an abnormal routine EEG. The background slowing is suggestive of severe encephalopathy. There are no focal slowing, epileptiform discharge or seizure on the EEG. Clinical correlation is recommended. MMFAIZA / KAMRONN: [id number] / MTDCeasar
[2021-09-01 19:53] LABS: Calcium 9.1 mg/dL (8.4-10.2); Potassium 4.5 mmol/L (3.5-5.1)
[2021-09-01] MEDS: levETIRAcetam IV 500 MG in SODIUM CHLORIDE 0.9% 100 ML IVPB SCH (20:32)
[2021-09-01] MEDS: carvediloL 6.25 MG TAB PO SCH (20:32)
[2021-09-01 20:33] LABS: Glucose,Whole Blood 130 mg/dL (75-99)
[2021-09-01] MEDS: ATORVASTATIN 40 MG TAB PO SCH (20:33)
[2021-09-01] MEDS: PRAMIPEXOLE 1 MG TAB PO SCH (20:33)
[2021-09-01 20:35] LABS: Anisocytosis Slight; HCT 26.5 % (34.0-46.0); HGB 8.2 gm/dL (11.4-16.0); Hypochromasia Slight; MCH 26.6 pg (25.0-35.0); MCV 85.6 fL (80.0-100.0); Mean Platelet Volume 9.2; Platelet Count 152 k/uL (150-450); RDW 17.5 % (11.5-15.5); WBC 9.7 k/uL (3.8-10.6)
[2021-09-01] MEDS ORDERED: HEPARIN SODIUM,PORCINE/PF 5,000 UNIT/0.5 ML SYRINGE SQ SCH (21:00)
[2021-09-02 04:05] LABS: Anisocytosis Slight; Basophils % (A) 0 %; Eosinophils # (A) 0.1 k/uL (0-0.7); Eosinophils % (A) 2 %; HCT 24.4 % (34.0-46.0); Lymphocytes # (A) 1.3 k/uL (1.0-4.8); Lymphocytes % (A) 17 %; MCH 27.3 pg (25.0-35.0); MCHC 32.6 g/dL (31.0-37.0); MCV 83.6 fL (80.0-100.0); Mean Platelet Volume 9.4; Monocytes # (A) 0.4 k/uL (0-1.0); Monocytes % (A) 5 %; Neutrophils # (A) 5.6 k/uL (1.3-7.7); Neutrophils % (A) 75 %; Platelet Count 158 k/uL (150-450); RBC 2.92 m/uL (3.80-5.40); RDW 17.7 % (11.5-15.5); WBC 7.5 k/uL (3.8-10.6)
[2021-09-02 04:17] LABS: Partial Thromboplastin Time 39.2 sec (22.0-30.0); Prothrombin Time 10.6 sec (9.0-12.0)
[2021-09-02] MEDS: NITROGLYCERIN OINT 1 INCH/GM PACKET TOPICAL SCH ×3 (06:08→19:02)
[2021-09-02 06:12] LABS: Glucose,Whole Blood 117 mg/dL (75-99)
[2021-09-02] MEDS: carvediloL 6.25 MG TAB PO SCH ×2 (06:21→16:29)
[2021-09-02] MEDS: PANTOPRAZOLE 40 MG TABLET PO SCH (06:21)
[2021-09-02] MEDS: HEPARIN SODIUM,PORCINE/PF 5,000 UNIT/0.5 ML SYRINGE SQ SCH ×2 (09:48→20:23)
[2021-09-02] MEDS: ISOSORBIDE DINITRATE 10 MG TAB PO SCH ×2 (09:48→20:53)
[2021-09-02] MEDS: EZETIMIBE 10 MG TAB PO SCH (09:49)
[2021-09-02] MEDS: SERTRALINE 100 MG TAB PO SCH (09:49)
[2021-09-02] MEDS: LOSARTAN 25 MG TAB PO SCH (09:49)
[2021-09-02] MEDS: levETIRAcetam IV 500 MG in SODIUM CHLORIDE 0.9% 100 ML IVPB SCH ×2 (09:54→20:23)
--- NOTE | 2021-09-02 10:17 | P.PN ---
Subjective Progress Note Date: 09/02/21 The patient is seen at bedside and feels is doing better. No further seizure-like activity. Spoke with the cardiology team and they felt possibly that the patient previous episode of subdural was from, a fall from a seizure Objective - Vital Signs Vital signs: Vital Signs Temp 98.1 F 09/02/21 04:05 Pulse 64 09/02/21 04:05 Resp 18 09/02/21 04:05 BP 105/55 09/02/21 04:05 Pulse Ox 95 09/02/21 07:56 Intake & Output 09/01/21 09/02/21 09/02/21 18:59 06:59 18:59 Intake Total 120 134.480 Output Total 300 Balance 120 -165.520 Weight 52 kg Intake: Intake, IV Titration 120 134.480 Amount Heparin Sod,Pork in 0.45% 20 134.480 NaCl 25,000 unit In 0.45 % NaCl 1 250ml.bag @ 12 UNITS/KG/HR 6.78 mls/hr IV .Q24H [facility]EE Rx#: [id number] levETIRAcetam IV 500 mg 100 In Sodium Chloride 0.9% 100 ml @ 400 mls/hr IVPB Q12HR [facility]ACEE Rx#:[id number] Output: Urine 300 Straight 300 Other: Voiding Method Bedside Commode # Voids 1 - Exam GENERAL: The patient is lying in bed and is not in acute distress. NEUROLOGICAL: Higher mental function: The patient is awake, alert, oriented to self, place. She stated the month correctly but the year is 1991. Patient is following commands. At times appears to have subtle expressive aphasia. No neglect. Intact repetition. Cranial nerves: The pupils are round, equal and reactive to light and accommodation. Visual jefferson are full to confrontation throughout. Extraocular movement is intact no nystagmus is noted. Facial sensation is normal to touch throughout. The facial strength is right lower facial weakness. Hearing is mild to moderately decreased bilaterally to hand rub. Tongue is midline and moved [id number] without any difficulty. Has mild to moderate dysarthria is noted. Shoulder shrug is normal bilaterally. Motor: The strength is 5 over 5 throughout. Normal tone and bulk. Cerebellum: Normal finger to nose bilaterally. Sensation: Sensation is normal to touch throughout. Reflexes (right/left): 2+ throughout. Plantars are downgoing bilaterally. WORK-UP: CT of the head on 09/01/2021 is reported as acute intracranial hemorrhage or midline shift. There is mild to moderate diffuse age-related cerebral atrophy and moderate chronic small vessel ischemic change along with old left-sided posterior inferior frontal lobe infarct. In the body reported it is mentioned that there is old infarct or encephalomalacia over the left manuel radiata posterior inferior left inferior region EEG on 09/01/2021: Is abnormal. Tobacco slowing suggestive of severe of opacity. There are no focal slowing, epileptiform discharges or seizure on the EEG. 2-D echo was reported as mild concentric left ventricular hypertrophy. Ejection fraction of 60-65%. Left atrium is moderately dilated. Hemoglobin A1c is 7.3. AST of 18 and ALT of 9. - Labs CBC & Chem 7: 09/02/21 03:46 09/01/21 19:19 Labs: Abnormal Lab Results - Last 24 Hours (Table) 09/01/21 09/01/21 09/01/21 Range/Units 07:32 11:54 12:47 RBC 3.16 L (3.80-5.40) m/uL Hgb 8.6 L (11.4-16.0) gm/dL Hct 26.6 L (34.0-46.0) % RDW 17.8 H (11.5-15.5) % APTT (22.0-30.0) sec Chloride (98-107) mmol/L BUN (7-17) mg/dL Glucose (74-99) mg/dL POC Glucose (mg/dL) 134 H (75-99) mg/dL Hemoglobin A1c 7.3 H (4.0-6.0) % 09/01/21 09/01/21 09/01/21 Range/Units 16:44 19:19 19:19 RBC 3.10 L (3.80-5.40) m/uL Hgb 8.2 L (11.4-16.0) gm/dL Hct 26.5 L (34.0-46.0) % RDW 17.5 H (11.5-15.5) % APTT (22.0-30.0) sec Chloride 108 H (98-107) mmol/L BUN 20 H (7-17) mg/dL Glucose 143 H (74-99) mg/dL POC Glucose (mg/dL) 185 H (75-99) mg/dL Hemoglobin A1c (4.0-6.0) % 09/01/21 09/02/21 09/02/21 Range/Units 20:29 03:46 03:46 RBC 2.92 L (3.80-5.40) m/uL Hgb 8.0 L (11.4-16.0) gm/dL Hct 24.4 L (34.0-46.0) % RDW 17.7 H (11.5-15.5) % APTT 39.2 H (22.0-30.0) sec Chloride (98-107) mmol/L BUN (7-17) mg/dL Glucose (74-99) mg/dL POC Glucose (mg/dL) 130 H (75-99) mg/dL Hemoglobin A1c (4.0-6.0) % 09/02/21 Range/Units 06:00 RBC (3.80-5.40) m/uL Hgb (11.4-16.0) gm/dL Hct (34.0-46.0) % RDW (11.5-15.5) % APTT (22.0-30.0) sec Chloride (98-107) mmol/L BUN (7-17) mg/dL Glucose (74-99) mg/dL POC Glucose (mg/dL) 117 H (75-99) mg/dL Hemoglobin A1c (4.0-6.0) % Assessment and Plan Assessment: New onset seizure likely due to history of old stroke. Old stroke over (12/2020) the left manuel radiata and left frontal region Old left subdural (05/2021 from fall. Cannot rule out it was not fall from seizure)--that is not seen on this current CT head Acute Chest pain with elevated troponin on heparin drip Recurrent falls Atrial fibrillation not on anticoagulation Diabetes mellitus (with current HbA1c of 7.3) History of coronary artery disease status post stent Hypothyroidism History of hypertension Plan: * Continue Keppra 500 mg every 12 hours. * From a neurological perspective it it is safe to use heparin drip as requested for use by cardiac team, since there is no any bleeding that's acute or subacute. There is no bleeding seen on current CT. * This patient has history of atrial fibrillation and will defer management to cardiology team. I think because of the recurrent falls possibly to avoid anticoagulation to avoid any bleed but again we'll defer to cardiology team. Possibly consider starting the patient on aspirin 81 mg daily if patient is not on discharge on anticoagulants. Continue Lipitor 40 mg daily for secondary stroke prophylaxis. * Every 4 hour neuro checks * On seizure precaution and pads * Speech therapy, PT and OT are consulted. * Unsure the reason for the patient's history of falls. Patient stated that she was on polypharmacy in the past and that was causing her to be dizzy. Not sure if she has also a component of diabetic neuropathy leading to falls. Recommend EMG with nerve conduction as an outpatient. * Cardiology is on board. * Will defer the rest of the workup to the primary team * Upon discharge the patient needs to follow-up with a neurologist as an outpa tient within 1-2 weeks (she has an appointment with Dr. Krishnan this month). * Per the [place] DMV because of the seizure, patient was notified that she's avoid driving for 6 month, avoid heights, swimming unassisted or use heavy machinery. The plan is discussed with the patient's nurse and cardiology team. Will follow-up sporadically. Dr. Santiago will start neurological service on 09/04/2021 AM. Rasheed Solomon M.D. Neuro-hospitalist Time with Patient: Less than 30
--- NOTE | 2021-09-02 10:49 | PN ---
PROGRESS NOTE This lady was seen by Neurology yesterday. I initially recommended a cardiac catheterization, given her troponin elevation. She has a history of previous percutaneous coronary intervention, but in May of this year she fell and had a subdural hematoma. The reason and etiology and circumstances of the fall are unavailable. However, I requested a neurology consult n view of the fact there was a question of whether we can give heparin or not. However, following that consult, the patient developed what seems to be a witnessed seizure, two episodes, and has been loaded with Keppra. Given these circumstances, and also it appears that her subdural hematoma may have been the precipitated by a seizure, I am recommending we discontinue IV heparin, place her on subcutaneous heparin and cancel the cardiac cath. I spoke to her friend, who seems to be her power of patent prosecution attorney, and suggested that we will pursue neurological management, but no intervention from a cardiac standpoint, even though she has history of previous stenting. Her troponins are equivocal. She has no further episodes of chest pain. I will recommend that we pursue medical therapy for her CAD and continue current management. Vitals are stable. Blood pressure is 108/70, pulse rate 64. No JVD. S1, S2 heard normally. Short systolic murmur. Lungs reveal decent air entry. Abdomen is soft. Lower extremities reveal diminished pulses. Central nervous system is normal. Patient has confusion, a recent is seizure yesterday, and borderline troponin elevation, but I am recommending no catheterization. Will switch her from IV to subcutaneous heparin and, based on clinical course, we will make further recommendations. Further input from Neurology is appreciated. MMODL / IJN: [id number] /
[2021-09-02 11:41] LABS: Glucose,Whole Blood 150 mg/dL (75-99)
[2021-09-02] MEDS: CHOLECALCIFEROL 25 MCG (1000 IU) TABLET PO SCH (12:28)
[2021-09-02] MEDS: MORPHINE SULFATE 4 MG/ML SYRINGE IV PRN (16:29)
[2021-09-02 16:55] LABS: Glucose,Whole Blood 187 mg/dL (75-99)
--- NOTE | 2021-09-02 18:04 | P.PN ---
Subjective Progress Note Date: 09/02/21 Principal diagnosis: New-onset seizures Elevated troponin/NSTEMI 76-year-old female presents to the emergency room as a transfer from [facility]. She does have a significant history of coronary disease with "9 stents" in her heart. States that there are placed at [facility]. He was out shopping today when she had sudden onset of crushing chest pain. She is taken in the [facility] by EMS. Laboratory studies demonstrated a tr oponin of 0.039. They did not heparinize the patient as she had a history of a subdural from a fall earlier this year. They transferred her here for cardiac evaluation. Upon arrival patient states that the pain is only 2 out of 10. It was improved with morphine. States that she took "10 nitro tablets" and did not have any improvement. She denies shortness of breath. Admits to some nausea wi thout vomiting. No diaphoresis. Patient does have some slurred speech which is chronic from a previous stroke. Patient is not currently on any blood thinners. On physical exam patient has notable swelling to the left lower extremity. States that she injured it earlier today. Denies history of DVT or PE. She was given an aspirin at the outside facility. No other alleviating, precipitating o r modifying factors While in ED blood work was repeated which revealed troponin of 0.053; patient w as given oral aspirin; heparin was not initiated due to history of subdural hematoma; patient continued to have recurrent episodes of chest pain ED and was recommended admission with cardiology evaluation Objective - Vital Signs Vital signs: Vital Signs Temp 98.1 F 09/02/21 04:05 Pulse 64 09/02/21 04:05 Resp 18 09/02/21 04:05 BP 105/55 09/02/21 04:05 Pulse Ox 95 09/02/21 07:56 Intake & Output 09/01/21 09/02/21 09/02/21 18:59 06:59 18:59 Intake Total 120 134.480 Output Total 300 Balance 120 -165.520 Weight 52 kg Intake: Intake, IV Titration 120 134.480 Amount Heparin Sod,Pork in 0.45% 20 134.480 NaCl 25,000 unit In 0.45 % NaCl 1 250ml.bag @ 12 UNITS/KG/HR 6.78 mls/hr IV .Q24H [facility] Rx#: [id number] levETIRAcetam IV 500 mg 100 In Sodium Chloride 0.9% 100 ml @ 400 mls/hr IVPB Q12HR [facility] Rx#:[id number] Output: Urine 300 Straight 300 Other: Voiding Method Bedside Commode # Voids 1 - Exam - Constitutional General appearance: Present: average body habitus, cooperative, no acute distress - EENT Eyes: Present: anicteric sclerae, EOMI, PERRLA, normal appearance ENT: Present: hearing grossly normal, normal oropharynx Ears: bilateral: normal - Neck Neck: Present: normal ROM. Absent: lymphadenopathy, rigidity, thyromegaly Carotids: negative: bruit present Thyroid: bilateral: normal size, negative: enlarged, nodule - Respiratory Respiratory: bilateral: CTA, negative: rales, rhonchi, wheezing - Cardiovascular Rhythm: regular Heart sounds: normal: S1, S2 Abnormal Heart Sounds: Absent: systolic murmur, diastolic murmur - Gastrointestinal General gastrointestinal: Present: normal bowel sounds, soft. Absent: distended , organomegaly, tenderness - Genitourinary Genitourinary Comment(s): deferred - Integumentary Integumentary: Present: normal turgor. Absent: jaundiced, rash, ulcer - Neurologic Neurologic: Present: CNII-XII intact. Absent: focal deficits - Musculoskeletal Musculoskeletal: Present: gait normal, strength equal bilaterally - Psychiatric Psychiatric: Present: A&O x's 3, appropriate affect, intact judgment & insight - Labs CBC & Chem 7: 09/02/21 03:46 09/01/21 19:19 Labs: Abnormal Lab Results - Last 24 Hours (Table) 09/01/21 09/01/21 09/01/21 Range/Units 07:32 11:54 12:47 RBC 3.16 L (3.80-5.40) m/uL Hgb 8.6 L (11.4-16.0) gm/dL Hct 26.6 L (34.0-46.0) % RDW 17.8 H (11.5-15.5) % APTT (22.0-30.0) sec Chloride (98-107) mmol/L BUN (7-17) mg/dL Glucose (74-99) mg/dL POC Glucose (mg/dL) 134 H (75-99) mg/dL Hemoglobin A1c 7.3 H (4.0-6.0) % 09/01/21 09/01/21 09/01/21 Range/Units 16:44 19:19 19:19 RBC 3.10 L (3.80-5.40) m/uL Hgb 8.2 L (11.4-16.0) gm/dL Hct 26.5 L (34.0-46.0) % RDW 17.5 H (11.5-15.5) % APTT (22.0-30.0) sec Chloride 108 H (98-107) mmol/L BUN 20 H (7-17) mg/dL Glucose 143 H (74-99) mg/dL POC Glucose (mg/dL) 185 H (75-99) mg/dL Hemoglobin A1c (4.0-6.0) % 09/01/21 09/02/21 09/02/21 Range/Units 20:29 03:46 03:46 RBC 2.92 L (3.80-5.40) m/uL Hgb 8.0 L (11.4-16.0) gm/dL Hct 24.4 L (34.0-46.0) % RDW 17.7 H (11.5-15.5) % APTT 39.2 H (22.0-30.0) sec Chloride (98-107) mmol/L BUN (7-17) mg/dL Glucose (74-99) mg/dL POC Glucose (mg/dL) 130 H (75-99) mg/dL Hemoglobin A1c (4.0-6.0) % 09/02/21 Range/Units 06:00 RBC (3.80-5.40) m/uL Hgb (11.4-16.0) gm/dL Hct (34.0-46.0) % RDW (11.5-15.5) % APTT (22.0-30.0) sec Chloride (98-107) mmol/L BUN (7-17) mg/dL Glucose (74-99) mg/dL POC Glucose (mg/dL) 117 H (75-99) mg/dL Hemoglobin A1c (4.0-6.0) % Assessment and Plan Assessment: 1. Chest pain/elevated troponin; non-STEMI Patient is started on aspirin in ED along with statins, nitrates; patient has been placed on Coreg 6.25 mg twice a day; isosorbide 5 mg by mouth twice a day -We will monitor EKG and trend troponin; 2-D echo; further recommendations once patient is evaluated by cardiology 2. Hypertension; Coreg 6.25 mg twice a day; losartan 25 mg daily 3. Hyperlipidemia; Lipitor 40 mg by mouth daily at bedtime 4. Depression/anxiety; we will continue with home dose of Zoloft 100 mg daily along with Klonopin 0.5 mg twice a day 5. Atrial fibrillation; rate controlled on Coreg 6.25 mg twice a day; currently not on anticoagulation therapy; await cardiology recommendations 6. History of CVA/TIA; patient is currently on aspirin and Lipitor; neurology on board and recommending for patient to be started on Keppra 1000 mg IV 1 followed by 500 mg every 12 hours; patient has been cleared for IV heparin use if deemed necessary by cardiology but overall is recommended to avoid anticoagulation due to history of recurrent falls; aspirin and Lipitor will be recommended for secondary stroke prophylaxis DVT prophylaxis; SCDs/subcu heparin CODE STATUS; full code
[2021-09-02] MEDS: ATORVASTATIN 40 MG TAB PO SCH (20:23)
[2021-09-02] MEDS: PRAMIPEXOLE 1 MG TAB PO SCH (20:53)
[2021-09-02 21:15] LABS: Glucose,Whole Blood 133 mg/dL (75-99)
[2021-09-03] MEDS: NITROGLYCERIN OINT 1 INCH/GM PACKET TOPICAL SCH ×2 (00:46→06:21)
[2021-09-03] MEDS: carvediloL 6.25 MG TAB PO SCH (05:50)
[2021-09-03] MEDS: PANTOPRAZOLE 40 MG TABLET PO SCH (05:50)
[2021-09-03 06:36] LABS: Glucose,Whole Blood 187 mg/dL (75-99)
[2021-09-03 07:23] LABS: Anisocytosis Slight; Basophils % (A) 0 %; Eosinophils # (A) 0.2 k/uL (0-0.7); Eosinophils % (A) 3 %; HCT 25.4 % (34.0-46.0); HGB 7.8 gm/dL (11.4-16.0); Hypochromasia Slight; Lymphocytes % (A) 17 %; MCH 26.7 pg (25.0-35.0); MCHC 30.8 g/dL (31.0-37.0); MCV 86.7 fL (80.0-100.0); Mean Platelet Volume 9.2; Monocytes # (A) 0.3 k/uL (0-1.0); Monocytes % (A) 5 %; Neutrophils # (A) 4.1 k/uL (1.3-7.7); Neutrophils % (A) 73 %; Platelet Count 138 k/uL (150-450); RBC 2.93 m/uL (3.80-5.40); RDW 17.2 % (11.5-15.5); WBC 5.7 k/uL (3.8-10.6)
[2021-09-03 07:47] LABS: Calcium 9.1 mg/dL (8.4-10.2); Potassium 4.3 mmol/L (3.5-5.1)
[2021-09-03] MEDS: HEPARIN SODIUM,PORCINE/PF 5,000 UNIT/0.5 ML SYRINGE SQ SCH ×2 (09:41→21:36)
[2021-09-03] MEDS: levETIRAcetam IV 500 MG in SODIUM CHLORIDE 0.9% 100 ML IVPB SCH ×2 (09:41→21:35)
[2021-09-03] MEDS: SERTRALINE 100 MG TAB PO SCH (09:42)
[2021-09-03] MEDS: LOSARTAN 25 MG TAB PO SCH (09:42)
[2021-09-03] MEDS: ISOSORBIDE MONONITRATE ER 30 MG TAB.ER.24H PO SCH (09:42)
--- NOTE | 2021-09-03 11:51 | PN ---
PROGRESS NOTE This lady came into the hospital with multiple issues and specifically has a remote history of having had stents placed 2013, circumflex stent was placed. However, she had a seizure while in the hospital and also has some anemia. I am recommending no coronary intervention, no invasive procedures at this time. I will treat her empirically with medications. She is doing well. No anginal symptoms. Vitals are stable. No JVD. S1-S2 heard normally. Short systolic murmur noted. Lungs revealed decent air entry. Abdomen and lower extremity exam are unchanged. We will continue current medical regimen and she can be discharged whenever okay with the admitting doctor and she will be following up with her light cleaner in [facility] or she is welcome to come back and see me. The patient can be discharged when okayed by the neurologist and admitting doctor. SANCHEZ / IGLESIA: [id number] /
[2021-09-03 11:59] LABS: Glucose,Whole Blood 130 mg/dL (75-99)
[2021-09-03] MEDS: CHOLECALCIFEROL 25 MCG (1000 IU) TABLET PO SCH (12:41)
[2021-09-03] MEDS: EZETIMIBE 10 MG TAB PO SCH (12:41)
[2021-09-03 16:52] LABS: Glucose,Whole Blood 115 mg/dL (75-99)
[2021-09-03] MEDS: carvediloL 12.5 MG TAB PO SCH (17:00)
[2021-09-03 17:33] LABS: % Iron Saturation 8.78 (12.00-45.00)
--- NOTE | 2021-09-03 19:25 | P.PN ---
Subjective Progress Note Date: 09/03/21 Principal diagnosis: New-onset seizures Elevated troponin/NSTEMI 76-year-old female presents to the emergency room as a transfer from [facility]. She does have a significant history of coronary disease with "9 stents" in her heart. States that there are placed at [facility]. He was out shopping today when she had sudden onset of crushing chest pain. She is taken in the [facility] by EMS. Laboratory studies demonstrated a tr oponin of 0.039. They did not heparinize the patient as she had a history of a subdural from a fall earlier this year. They transferred her here for cardiac evaluation. Upon arrival patient states that the pain is only 2 out of 10. It was improved with morphine. States that she took "10 nitro tablets" and did not have any improvement. She denies shortness of breath. Admits to some nausea wi thout vomiting. No diaphoresis. Patient does have some slurred speech which is chronic from a previous stroke. Patient is not currently on any blood thinners. On physical exam patient has notable swelling to the left lower extremity. States that she injured it earlier today. Denies history of DVT or PE. She was given an aspirin at the outside facility. No other alleviating, precipitating o r modifying factors While in ED blood work was repeated which revealed troponin of 0.053; patient w as given oral aspirin; heparin was not initiated due to history of subdural hematoma; patient continued to have recurrent episodes of chest pain ED and was recommended admission with cardiology evaluation 09/03/2021 Patient is seen and evaluated sitting up in bed; denies any complaint of chest no shortness of breath; no seizure activity reported per nursing staff Vital signs are reviewed and remained stable Laboratory review shows WBC 5.7, hemoglobin 7.8, platelet count of 138; sodium 139, potassium 4.3 Patient has been evaluated by cardiology and initial plan was to proceed with heart catheterization; however while admitted patient had episodes of seizure activity and has been placed on Keppra after neurology evaluation; cardiology plans to hold off on cardiac catheterization at this time; patient will remain on Keppra 500 mg every 12 hours PT/OT consulted and recommendations are pending for possible discharge to skilled rehab Objective - Vital Signs Vital signs: Vital Signs Temp 98.1 F 09/03/21 03:50 Pulse 71 09/03/21 03:50 Resp 17 09/03/21 03:50 BP 132/64 09/03/21 03:50 Pulse Ox 96 09/03/21 03:50 Intake & Output 09/02/21 09/03/21 09/03/21 18:59 06:59 18:59 Intake Total 370 0 Output Total 200 97609 Balance 170 -78860 0 Weight 51.5 kg Intake: Oral 370 0 Output: Urine 200 600 Straight 600 Post Void Residual 29362 Other: Voiding Method Bedside Commode Bedpan # Voids 1 3 - Exam - Constitutional General appearance: Present: average body habitus, cooperative, no acute distress - EENT Eyes: Present: anicteric sclerae, EOMI, PERRLA, normal appearance ENT: Present: hearing grossly normal, normal oropharynx Ears: bilateral: normal - Neck Neck: Present: normal ROM. Absent: lymphadenopathy, rigidity, thyromegaly Carotids: negative: bruit present Thyroid: bilateral: normal size, negative: enlarged, nodule - Respiratory Respiratory: bilateral: CTA, negative: rales, rhonchi, wheezing - Cardiovascular Rhythm: regular Heart sounds: normal: S1, S2 Abnormal Heart Sounds: Absent: systolic murmur, diastolic murmur - Gastrointestinal General gastrointestinal: Present: normal bowel sounds, soft. Absent: distended, organomegaly, tenderness - Genitourinary Genitourinary Comment(s): deferred - Integumentary Integumentary: Present: normal turgor. Absent: jaundiced, rash, ulcer - Neurologic Neurologic: Present: CNII-XII intact. Absent: focal deficits - Musculoskeletal Musculoskeletal: Present: gait normal, strength equal bilaterally - Psychiatric Psychiatric: Present: A&O x's 3, appropriate affect, intact judgment & insight - Labs CBC & Chem 7: 09/03/21 06:54 09/03/21 06:54 Labs: Abnormal Lab Results - Last 24 Hours (Table) 09/02/21 09/02/21 09/02/21 Range/Units 11:39 16:53 21:10 RBC (3.80-5.40) m/uL Hgb (11.4-16.0) gm/dL Hct (34.0-46.0) % MCHC (31.0-37.0) g/dL RDW (11.5-15.5) % Plt Count (150-450) k/uL Chloride (98-107) mmol/L Glucose (74-99) mg/dL POC Glucose (mg/dL) 150 H 187 H 133 H (75-99) mg/dL 09/03/21 09/03/21 09/03/21 Range/Units 06:29 06:54 06:54 RBC 2.93 L (3.80-5.40) m/uL Hgb 7.8 L (11.4-16.0) gm/dL Hct 25.4 L (34.0-46.0) % MCHC 30.8 L (31.0-37.0) g/dL RDW 17.2 H (11.5-15.5) % Plt Count 138 L (150-450) k/uL Chloride 109 H (98-107) mmol/L Glucose 117 H (74-99) mg/dL POC Glucose (mg/dL) 187 H (75-99) mg/dL Assessment and Plan Assessment: 1. Chest pain/elevated troponin; non-STEMI Patient is started on aspirin in ED along with statins, nitrates; patient has been placed on Coreg 6.25 mg twice a day; isosorbide 5 mg by mouth twice a day -We will monitor EKG and trend troponin; 2-D echo; further recommendations once patient is evaluated by cardiology 2. Hypertension; Coreg 6.25 mg twice a day; losartan 25 mg daily 3. Hyperlipidemia; Lipitor 40 mg by mouth daily at bedtime 4. Depression/anxiety; we will continue with home dose of Zoloft 100 mg daily along with Klonopin 0.5 mg twice a day 5. Atrial fibrillation; rate controlled on Coreg 6.25 mg twice a day; currently not on anticoagulation therapy; await cardiology recommendations 6. History of CVA/TIA; patient is currently on aspirin and Lipitor; neurology on board and recommending for patient to be started on Keppra 1000 mg IV 1 followed by 500 mg every 12 hours; patient has been cleared for IV heparin use if deemed necessary by cardiology but overall is recommended to avoid anticoagulation due to history of recurrent falls; aspirin and Lipitor will be recommended for secondary stroke prophylaxis DVT prophylaxis; SCDs/subcu heparin CODE STATUS; full code
[2021-09-03 20:39] LABS: Glucose,Whole Blood 139 mg/dL (75-99)
[2021-09-03 20:54] LABS: Anisocytosis Slight; HCT 24.7 % (34.0-46.0); HGB 7.9 gm/dL (11.4-16.0); Hypochromasia Slight; MCH 27.3 pg (25.0-35.0); MCHC 32.1 g/dL (31.0-37.0); Mean Platelet Volume 8.6; Platelet Count 137 k/uL (150-450); RBC 2.91 m/uL (3.80-5.40); WBC 5.4 k/uL (3.8-10.6)
[2021-09-03] MEDS: clonazePAM 0.5 MG TAB PO PRN (21:36)
[2021-09-03] MEDS: ATORVASTATIN 40 MG TAB PO SCH (21:36)
[2021-09-03] MEDS: PRAMIPEXOLE 1 MG TAB PO SCH (22:08)
[2021-09-04 06:04] LABS: Glucose,Whole Blood 152 mg/dL (75-99)
[2021-09-04] MEDS: carvediloL 12.5 MG TAB PO SCH ×2 (06:10→16:55)
[2021-09-04] MEDS: PANTOPRAZOLE 40 MG TABLET PO SCH (06:10)
--- NOTE | 2021-09-04 09:11 | CDI ---
Documentation Clarification Form Date: 09/04/2021 08:46:33 AM From: Yady Yanes CCS, CCDS Admit Date: 08/31/2021 08:15:00 PM Patient Name: Bernadette Lovelace Visit Number: [id number] Discharge Date: ATTENTION: The Clinical Documentation Specialists (CDI) and [facility] Coding Staff appreciate your assistance in clarifying documentation. Please respond to the clarification below the line at the bottom and electronically sign. The CDI & [facility] Coding staff will review the response and follow-up if needed. Please note: Queries are made part of the Legal Health Record. If you have any questions, please contact the author of this message via ITS. Dr. Bear Williamson: Atrial Fibrillation is documented in the 08/31 ED Note and the 09/01 History & Physical. Per the H/P: Atrial Fibrillation; rate controlled on Coreg BID, Not on anticoagulation therapy, await Cardiology recommendation. Per the 09/01 Neurology Consult: This patient has a history of Atrial Fibrillation and will defer management to Cardiology team. Additional clarification regarding the type of atrial fibrillation is requested. History/Risk Factors per the 09/01 H/P: Atrial Fibrillation, CAD with stents, CHF, CVA, DM, GERD, Hyperlipidemia, Hypertension, [place], Sleep Apnea, Hypothyroid, Subdural Hematoma May 2020, Breast Cancer and Ovarian Cancer. Current Smoker. Clinical Indicators: Presented to the ED on 08/31 with Chest Pain via EMS transfer from [facility]. ED Clinical Impression: Chest pain H/P Assessment: Chest pain/elevated troponin: NSTEMI. Atrial Fibrillation, rate controlled on Coreg. 08/31 VS: HR 69 - 85 - 75 09/01 HR: 78 - 70 - 67 - 80 - 110 - 96 09/02 HR: 64 - 90 - 82 - 66 08/31 EKG #1: R 81 Sinus rhythm w/PACs & PVCs or Fusion complexes, RBBB, Left anterior fascicular block, cannot rule out inferior infarct. EKG #2: R 85 Sinus rhythm w/PACs, RBBB, Left anterior fascicular block EKG #3: R 74 Sinus rhythm w/fusion complexes, Left axis deviation, Low voltage QRS, Inc RBBB, Inferior infarct age undetermined. 09/01 EKG: R 95 Sinus rhythm w/PACs, Left axis deviation, Inferior-posterior infarct 09/01 EKG #2: R 87 Sinus rhythm w/sinus arrhythmia w/occasional PVCs, Left axis deviation, Low voltage QRS, Inferior-posterior infarct age undetermined. 09/02 EKG: R 86 nsr, Left axis deviation, RBBB Treatment 08/31: Telemetry, O2 2Lnc, IV Morphine, IV Mag Sulfate/Dextrose. 09/01: IV Heparin drip, IV Keppra, IV Ativan, po Coreq. 09/02: Heparin sq, po Coreg. 09/01 Cardiology Consult: NSTEMI in patient with prior CAD and multiple stents. Increased Coreg. Requested Neurology consult regarding safety of anticoagulation. 09/01 Neurology Consult: Avoid anticoagulation to avoid bleed, deferred to Cardiology. Please clarify the type of atrial fibrillation, if known: [ ] Chronic [ ] Permanent [ ] Paroxysmal [ ] Persistent [ ] Other, please specify [ ] Unable to determine (Template Last Revised: April 2021) 09/07: Query response documented by the Attending Physician, Dr. Hood in the 09/04 Progress Note: Chronic Atrial Fibrillation. (CDS: BRO) JAYME
--- NOTE | 2021-09-04 09:22 | CDI ---
Documentation Clarification Form Date: 09/04/2021 09:14:00 AM From: Yady Yanes CCS, CCDS Admit Date: 08/31/2021 08:15:00 PM Patient Name: Bernadette Lovelace Visit Number: [id number] Discharge Date: ATTENTION: The Clinical Documentation Specialists (CDI) and [facility] Coding Staff appreciate your assistance in clarifying documentation. Please respond to the clarification below the line at the bottom and electronically sign. The CDI & [facility] Coding staff will review the response and follow-up if needed. Please note: Queries are made part of the Legal Health Record. If you have any questions, please contact the author of this message via ITS. Dr. Bear Williamson: Unspecified anemia is documented in the 09/01 Cardiology Consult and the subsequent Cardiology Progress Note. Additional specificity regarding the Type and Acuity of Anemia is requested. History/Risk Factors per the 09/01 H/P: Atrial Fibrillation, CAD with stents, CHF, CVA, DM, GERD, Hyperlipidemia, Hypertension, [place], Sleep Apnea, Hypothyroid, Subdural Hematoma May 2020, Breast Cancer and Ovarian Cancer. Current Smoker. Clinical Indicators: Presented to the ED on 08/31 with Chest Pain via EMS transfer from [facility]. ED Clinical Impression: Chest pain H/P Assessment: Chest pain/elevated troponin: NSTEMI. Atrial Fibrillation, rate controlled on Coreg. 08/31 VS: T 98.0, P 69 - 85; R 16 - 18; BP 162/78 - 159/92; PO 98 RA 08/31 LAB: RBC 3.35, Hgb 9.1, Hct 27.6 09/01 Hgb 7.9, Hct 25.2 09/02 Hgb 8.0, Hct 24.4 09/03: Hgb 7.8, Hct 25.4 Treatment 08/31: Telemetry, Daily CBC, O2 2Lnc, IV Morphine, IV Mag Sulfate/Dextrose. 09/01: IV Heparin drip, IV Keppra, IV Ativan, po Coreq, Seizure precautions. 09/02: Heparin sq, po Coreg Please clarify the type and acuity of anemia: [ ] Chronic blood loss anemia [ ] Iron deficiency anemia [ ] Hemolytic anemia [ ] Drug induced anemia [ ] Unable to determine [ ] Other, please specify (Template Last Revised: January 2021) 09/05 Per the GI Consult on 09/04, the patient has Iron Deficiency Anemia. (CDS: BRO) JAYME
[2021-09-04] MEDS: levETIRAcetam IV 500 MG in SODIUM CHLORIDE 0.9% 100 ML IVPB SCH (10:28)
[2021-09-04] MEDS: HEPARIN SODIUM,PORCINE/PF 5,000 UNIT/0.5 ML SYRINGE SQ SCH (10:29)
[2021-09-04] MEDS: SERTRALINE 100 MG TAB PO SCH (10:31)
[2021-09-04] MEDS: CHOLECALCIFEROL 25 MCG (1000 IU) TABLET PO SCH (10:31)
[2021-09-04] MEDS: EZETIMIBE 10 MG TAB PO SCH (10:31)
[2021-09-04] MEDS: ISOSORBIDE MONONITRATE ER 30 MG TAB.ER.24H PO SCH (10:31)
[2021-09-04] MEDS: clonazePAM 0.5 MG TAB PO PRN (10:32)
[2021-09-04] MEDS: LOSARTAN 25 MG TAB PO SCH (10:32)
[2021-09-04 11:35] LABS: Glucose,Whole Blood 134 mg/dL (75-99)
--- NOTE | 2021-09-04 12:02 | P.PN ---
Subjective From records: 76-year-old female presents to the emergency room as a transfer from [facility]. She does have a significant history of coronary disease with "9 stents" in her heart. States that there are placed at [facility]. He was out shopping today when she had sudden onset of crushing chest pain. She is taken in the [facility] by EMS. Laboratory studies demonstrated a troponin of 0.039. They did not heparinize the patient as she had a history of a subdural from a fall earlier this year. They transferred her here for cardiac evaluation. Upon arrival patient states that the pain is only 2 out of 10. It was improved with morphine. States that she took "10 nitro tablets" and did not have any improvement. She denies shortness of breath. Admits to some nausea without vomiting. No diaphoresis. Patient does have some slurred speech which is chronic from a previous stroke. Patient is not currently on any blood thinners. On physical exam patient has notable swelling to the left lower extremity. States that she injured it earlier today. Denies history of DVT or PE. She was given an aspirin at the outside facility. No other alleviating, precipitating or modifying factors While in ED blood work was repeated which revealed troponin of 0.053; patient was given oral aspirin; heparin was not initiated due to history of subdural hematoma; patient continued to have recurrent episodes of chest pain ED and was recommended admission with cardiology evaluation 09/03/2021 Patient is seen and evaluated sitting up in bed; denies any complaint of chest no shortness of breath; no seizure activity reported per nursing staff Vital signs are reviewed and remained stable Laboratory review shows WBC 5.7, hemoglobin 7.8, platelet count of 138; sodium 139, potassium 4.3 Patient has been evaluated by cardiology and initial plan was to proceed with heart catheterization; however while admitted patient had episodes of seizure activity and has been placed on Keppra after neurology evaluation; cardiology plans to hold off on cardiac catheterization at this time; patient will remain on Keppra 500 mg every 12 hours PT/OT consulted and recommendations are pending for possible discharge to skilled rehab Subjective: 09/04/2021 This is a pleasant 76 years old female who was transferred from [facility] for chest pain. Patient has been evaluated by maintenance representative for her c hest pain with her history of A. fib, no anticoagulation or aspirin started by maintenance representative and echocardiogram showed ejection fraction of 60-65% I discussed the case with maintenance representative team today, they told me they stopped seeing her since yesterday last time. They have no further recommendation regarding aspirin or anticoagulation. However she has recent history of left subdural hematoma and history of recurrent falls. Also she developed new onset seizures secondary to her old stroke. Patient states she came also with dizziness which is resolved now. Also has been evaluated by neurologist and started on Keppra 500 mg twice a day. Blood pressure medications were adjusted by maintenance representative including losartan 25 mg, Coreg 12.5 mg and Imdur 30 mg daily. The other day patient was sent for by menstrual evaluation but she will developed seizure and this was canceled and, preoperative test today. She has history of PEG tube for dysphagia which placed on December of this year earlier. She had been been used it for several/3 months now as per patient. We going to reorder the barium swallow test, check chest x-ray and GI consult for iron deficiency anemia and dysphagia. Occult blood in stool is pending ALLERGIES the patient is calm but she was eager to go home today, pain for the patient she is not medically ready. Knows she isn't [facility] but she could not tell a year throughout its 1900s, and she couldn't tell the name of the president. She denies any specific symptoms other than that. Chest pain or dyspnea. No abdominal pain. No nausea vomiting. She has history of diabetes mellitus but she stopped taking her metformin because of her feeding difficulty and losing weight, currently On diet control and insulin sliding scale. She is eating 25-50% of her meal Objective - Vital Signs Vital signs: Vital Signs Temp 97.6 F 09/04/21 08:02 Pulse 69 09/04/21 08:02 Resp 16 09/04/21 08:02 BP 127/71 09/04/21 08:02 Pulse Ox 94 L 09/04/21 08:02 Intake & Output 09/03/21 09/04/21 09/04/21 18:59 06:59 18:59 Intake Total 240 240 Output Total 450 400 Balance 240 -450 -160 Weight 48.5 kg Intake: Oral 240 240 Output: Urine 450 400 Other: Voiding Method Bedpan Bedside Commode # Voids 2 1 - Exam -GENERAL: The patient is alert and oriented x2 forget to , , not in any acute distress. Well developed, well nourished. HEENT: Pupils are round and equally reacting to light. EOMI. No scleral icterus. No conjunctival pallor. Normocephalic, atraumatic. No pharyngeal erythema. No thyromegaly. CARDIOVASCULAR: S1 and S2 present. No murmurs, rubs, or gallops. PULMONARY: Chest is clear to auscultation, no wheezing or crackles. -ABDOMEN: Soft, nontender, nondistended, normoactive bowel sounds. No palpable organomegaly. PEG tube is in place MUSCULOSKELETAL: No joint swelling or deformity. EXTREMITIES: No cyanosis, clubbing, or pedal edema. NEUROLOGICAL: Gross neurological examination did not reveal any focal deficits. SKIN: No rashes. no petechiae. - Labs CBC & Chem 7: 09/03/21 20:35 09/03/21 06:54 Labs: Abnormal Lab Results - Last 24 Hours (Table) 09/03/21 09/03/21 09/03/21 Range/Units 06:54 11:51 16:50 RBC (3.80-5.40) m/uL Hgb (11.4-16.0) gm/dL Hct (34.0-46.0) % RDW (11.5-15.5) % Plt Count (150-450) k/uL POC Glucose (mg/dL) 130 H 115 H (75-99) mg/dL Iron 24 L (50-170) ug/dL % Saturation 8.78 L (12.00-45.00) Transferrin 192.0 L (204.0-354.0) mg/dL 09/03/21 09/03/21 09/04/21 Range/Units 20:25 20:35 05:53 RBC 2.91 L (3.80-5.40) m/uL Hgb 7.9 L (11.4-16.0) gm/dL Hct 24.7 L (34.0-46.0) % RDW 17.0 H (11.5-15.5) % Plt Count 137 L (150-450) k/uL POC Glucose (mg/dL) 139 H 152 H (75-99) mg/dL Iron (50-170) ug/dL % Saturation (12.00-45.00) Transferrin (204.0-354.0) mg/dL 09/04/21 Range/Units 11:32 RBC (3.80-5.40) m/uL Hgb (11.4-16.0) gm/dL Hct (34.0-46.0) % RDW (11.5-15.5) % Plt Count (150-450) k/uL POC Glucose (mg/dL) 134 H (75-99) mg/dL Iron (50-170) ug/dL % Saturation (12.00-45.00) Transferrin (204.0-354.0) mg/dL Assessment and Plan Assessment: Chest pain and dizziness, present on admission. Cleared by maintenance representative for discharge. Likely resolved now per patient Consent seizure secondary to her old stroke Dysphagia status post PEG tube on 12/2020. Iron deficiency anemia Patient Hyperlipidemia Chronic atrial fibrillation not on anticoagulation because of her anemia and recurrent falls and subdural hematoma Diabetes mellitus, diet controlled only Plan: This is a pleasant 76 years old female who presents with chest pain/dizziness which is resolved. And she is cleared By maintenance representative to be discharged. However patient is with dysphagia and anemia. We'll order chest x-ray, body swallow and GI consult Continue with Protonix Check vitamin B12 and folate Continue with pured chopped diet with thick liquid Labs and medication were reviewed.. Continue same treatment. Continue with symptomatic treatment. Resume home medication. Monitor lytes and vitals. DVT and GI prophylaxis. Further recommendationsas per clinical course of the patient DVT prophylaxis: Subcutaneous heparin GI Prophylaxis: Pepcid PT/OT: Pending Prognosis is guarded
--- NOTE | 2021-09-04 12:42 | FL ---
EXAMINATION TYPE: FL barium swallow w video DATE OF EXAM: 09/04/2021 CLINICAL HISTORY: 76-year-old female history of prior stroke with PEG tube. Reassess patient's mole. TECHNIQUE: Deglutition study is performed utilizing thin liquid barium, honey and nectar thick liqui d barium, barium thick applesauce, and barium coated cracker. COMPARISON: None. Total fluoroscopy time: 3 minutes 19 seconds. Total images: None. Real-time fluoroscopy support was provided to speech pathology. FINDINGS: Swallow initiation was mildly delayed with bolus free spilling to the level of the vallecula. There i s delayed oral transit. Single episode of aspiration with thin liquids. Delayed cough reflex. This is improved with chin tuck maneuver. No other penetration or aspiration is seen. No significant pharyng eal residue was appreciated. IMPRESSION: Single episode of aspiration with thin liquids. There is delayed swallow initiation and delayed oral transit. No other penetration or aspiration is seen. Please refer to speech therapist notes for further details if necessary.
--- NOTE | 2021-09-04 12:45 | XR ---
EXAMINATION TYPE: XR chest 2V DATE OF EXAM: 09/04/2021 COMPARISON: NONE HISTORY: Dysphasia and pain. TECHNIQUE: Frontal and lateral views of the chest are obtained. FINDINGS: There is chronic parenchymal change with small sized right greater than left pleural effus ions. Patchy right basilar opacity. Heart size upper limits of normal with atherosclerotic thoracic a wesly. There are several overlying coronary stents noted. There is underlying scoliotic curvature and /or position. Right axillary surgical clips suspected. IMPRESSION: Small sides right greater than left pleural effusions. Patchy right middle and lower lob e acute infiltrate and/or atelectasis. Correlate clinically.
[2021-09-04 12:50] LABS: Glucose,Whole Blood 142 mg/dL (75-99)
[2021-09-04] MEDS: INSULIN ASPART (NovoLOG) 100 UNIT/ML VIAL SQ SCH ×2 (13:37→16:56)
[2021-09-04] MEDS ORDERED: SODIUM FERRIC GLUCONAT-SUCROSE 125 MG in SODIUM CHLORIDE 0.9% 100 ML IVPB ONE (15:00)
--- NOTE | 2021-09-04 15:00 | P.CONS ---
History of Present Illness - Reason for Consult Consult date: 09/04/21 iron deficiency anemia, dysphagia Requesting physician: Bob E Sheet - Chief Complaint Chest pain - History of Present Illness This is a 76-year-old white female who was admitted 4 days ago as a transfer from [facility] for chest pain. She has a significant history of coronary artery disease status post multiple stents in her heart. Apparently the patient had crushing chest pain while she was shopping and EMS was called and she was transferred to [facility] and subsequently then transferred here for further cardiac management. On presentation the patient was found to be anemic with a hemoglobin of 9.1. She had iron studies done consistent with i aracely deficiency anemia. Patient denies being on any anticoagulation. She denies any signs or symptoms of GI bleed. States that she has had several colonoscopies in the past, unsure of when the last one was but thinks maybe 4-5 years ago done in [place]. She also recently had a stroke in December of this year and had a PEG tube placed for dysphagia. She is not using her PEG tube and has not used for several months as she is able to swallow without difficulty soft foods. However during this hospitalization she was seen and evaluated by speech therapy and underwent a modified barium swallow that showed small amount of aspiration with thin liquids. Speech therapy is recommending thickened liquids. Diet with progression to dysphagia level III chopped diet. Along with outpatient speech therapy. Patient has no current labs from today. Yesterday's he WBC 5.4 hemoglobin 7.9 hematocrit 24.7 platelet count 137,000, INR 1.0. On admission she did have elevation in her troponins. Cardiology is following. Review of Systems REVIEW OF SYSTEMS: CARDIOPULMONARY: No chest pain or shortness of breath. Gastrointestinal: No abdominal pain. No nausea or vomiting. No hematemesis, coffee-ground emesis. No rectal bleeding, or melena. Patient has some disphagia. GENITOURINARY: No dysuria or hematuria. MUSCULOSKELETAL: Reports normal range of motion., Joint pain. SKIN: No rashes. No jaundice. ENDOCRINE: No chills, fevers. No excessive weight gain or loss. No polydipsia or polyuria. PSYCHIATRIC: Unremarkable. NEUROLOGY: No change in mental status. Denies dizziness, headache. Dysphasia, residual from stroke. ENT: Vision unremarkable. CONSTITUTIONAL: No recent weight loss. No fever, chills, night sweats. Past Medical History Past Medical History: Atrial Fibrillation, Blood Disorder, Cancer, Chest Pain / Angina, Heart Failure, CVA/TIA, Diabetes Mellitus, GERD/Reflux, Hyperlipidemia, Hypertension, Myocardial Infarction ([place]), Renal Disease, Respiratory Disorder, Sleep Apnea/CPAP/BIPAP, Thyroid Disorder, Vascular Disorder Additional Past Medical History / Comment(s): breast cancer and ovarian. Radiation (not current), subdural hematoma may 2020 Last Myocardial Infarction Date:: 2018 History of Any Multi-Drug Resistant Organisms: None Reported Past Surgical History: Back Surgery, Breast Surgery, Heart Catheterization With Stent Additional Past Surgical History / Comment(s): 10 heart stents Past Anesthesia/Blood Transfusion Reactions: No Reported Reaction Date of Last Stent Placement:: 2018 Past Psychological History: Anxiety, Depression Smoking Status: Current every day smoker Past Alcohol Use History: None Reported Past Drug Use History: None Reported - Past Family History Father Family Medical History: Cancer, Coronary Artery Disease (CAD) Mother Family Medical History: Cancer Medications and Allergies Home Medications Medication Instructions Recorded Confirmed Type Atorvastatin Calcium [Lipitor] 40 mg PO HS 08/31/21 08/31/21 History Cholecalciferol [Vitamin D3 (25 50 mcg PO DAILY 08/31/21 08/31/21 History Mcg = 1000 Iu)] Ezetimibe [Zetia] 10 mg PO DAILY 08/31/21 08/31/21 History Ibuprofen [Motrin] 800 mg PO Q8H PRN 08/31/21 08/31/21 History Isosorbide Dinitrate 5 mg PO BID 08/31/21 08/31/21 History Nitroglycerin Sl Tabs [Nitrostat] 0.4 mg SL Q5M PRN 08/31/21 08/31/21 History Omeprazole 40 mg PO DAILY 08/31/21 08/31/21 History Pramipexole [Mirapex] 1 mg PO HS 08/31/21 08/31/21 History Scopolamine [Scopolamine 1 MG/72 1 patch TRANSDERM Q72H PRN 08/31/21 08/31/21 History HR patch] Sertraline HCl [Zoloft] 100 mg PO DAILY 08/31/21 08/31/21 History Sotalol [Betapace] 80 mg PO DAILY 08/31/21 08/31/21 History bisacodyL [Dulcolax] 10 mg RECTAL DAILY PRN 08/31/21 08/31/21 History clonazePAM [KlonoPIN] 0.5 mg PO BID PRN 08/31/21 08/31/21 History lisinopriL [Zestril] 2.5 mg PO DAILY 08/31/21 08/31/21 History Allergies Allergy/AdvReac Type Severity Reaction Status Date / Time gabapentin [From Neurontin] Allergy Unknown Verified 08/31/21 18:21 lactulose Allergy Unknown Verified 08/31/21 18:21 oxycodone Allergy Unknown Verified 08/31/21 18:21 ropinirole [From Requip] Allergy Unknown Verified 08/31/21 18:21 ticagrelor [From Brilinta] Allergy Unknown Verified 08/31/21 18:21 cyclobenzaprine AdvReac Hallucinati Verified 08/31/21 18:21 ons Physical Exam Vitals: Vital Signs Temp Pulse Resp BP BP BP BP 09/04/21 12:57 98.3 F 81 16 113/77 09/04/21 08:02 97.6 F 69 16 127/71 09/04/21 04:00 98.0 F 72 18 133/73 09/04/21 00:00 98.6 F 80 18 115/66 09/03/21 20:00 98.8 F 78 18 109/55 09/03/21 16:00 98 F 74 18 134/66 Pulse Ox 09/04/21 12:57 95 09/04/21 08:02 94 L 09/04/21 04:00 93 L 09/04/21 00:00 97 09/03/21 20:00 98 09/03/21 16:00 97 Intake and Output 09/03/21 09/04/21 09/04/21 22:59 06:59 14:59 Intake Total 240 240 Output Total 450 400 Balance 240 -450 -160 Intake: Oral 240 240 Output: Urine 450 400 Other: Voiding Method Bedside Commode # Voids 2 1 Weight 48.5 kg General appearance: The patient is alert, oriented, appears in no acute distress. HET: Head is normocephalic and atraumatic. Conjunctiva pink. Sclera anicteric. Neck: Supple without lymphadenopathy. Trachea midline. Heart: S1 S2. Regular rate and rhythm. Lungs: Clear to auscultation. Abdomen: Soft, nontender, nondistended with bowel sounds. No guarding or rigidity. Skin: No rashes. No jaundice. Extremities: Normal skin color and turgor. No pedal edema. Neurological: No focal deficits. Alert and oriented 3.. Results CBC & Chem 7: 09/03/21 20:35 09/03/21 06:54 Labs: Abnormal Lab Results - Last 24 Hours (Table) 09/03/21 09/03/21 09/03/21 Range/Units 06:54 16:50 20:25 RBC (3.80-5.40) m/uL Hgb (11.4-16.0) gm/dL Hct (34.0-46.0) % RDW (11.5-15.5) % Plt Count (150-450) k/uL POC Glucose (mg/dL) 115 H 139 H (75-99) mg/dL Iron 24 L (50-170) ug/dL % Saturation 8.78 L (12.00-45.00) Transferrin 192.0 L (204.0-354.0) mg/dL 09/03/21 09/04/21 09/04/21 Range/Units 20:35 05:53 11:32 RBC 2.91 L (3.80-5.40) m/uL Hgb 7.9 L (11.4-16.0) gm/dL Hct 24.7 L (34.0-46.0) % RDW 17.0 H (11.5-15.5) % Plt Count 137 L (150-450) k/uL POC Glucose (mg/dL) 152 H 134 H (75-99) mg/dL Iron (50-170) ug/dL % Saturation (12.00-45.00) Transferrin (204.0-354.0) mg/dL 09/04/21 Range/Units 12:48 RBC (3.80-5.40) m/uL Hgb (11.4-16.0) gm/dL Hct (34.0-46.0) % RDW (11.5-15.5) % Plt Count (150-450) k/uL POC Glucose (mg/dL) 142 H (75-99) mg/dL Iron (50-170) ug/dL % Saturation (12.00-45.00) Transferrin (204.0-354.0) mg/dL Assessment and Plan (1) Iron deficiency anemia Narrative/Plan: This is a 76-year-old female who presented to [facility] with complaints of chest pain and was subsequently transferred to this hospital. Patient has significant past medical history including coronary artery disease with multiple stents not currently on any anticoagulation as well as recent CVA with residual dysphagia. Patient was noted to have a hemoglobin of 9.1 on admission with a slight drop to 7.9 yesterday. No signs or symptoms of GI bleed. She denies any hematemesis, coffee-ground emesis, melena or hematochezia. Iron studies were completed on patient that showed an iron level of 24 consistent with iron deficiency anemia. Patient states she had a colonoscopy or 5 years ago in [place]. She is refusing at this time any endoscopic evaluation, and states that if she were to undergo EGD or colonoscopy she would want it to be done in [place]. Current Visit: Yes Status: Acute Code(s): D50.9 - IRON DEFICIENCY ANEMIA, UNSPECIFIED SNOMED Code(s): 17015529 (2) Dysphagia due to old cerebrovascular accident Narrative/Plan: Patient has PEG tube, currently not in use. Speech therapy on consult and recommending pured diet with thickened liquids, advance to dysphagia level III Diet. Current Visit: Yes Status: Acute Code(s): I69.391 - DYSPHAGIA FOLLOWING CEREBRAL INFARCTION SNOMED Code(s): 021408037 Plan: 1. Continue symptomatic supportive care 2. Continue diet as recommended by speech therapy 3. Iron studies reviewed, will order ferritin 4. Will give 1 dose of IV iron at this time 5. Continue Protonix for GI prophylaxis 6. Discussed with patient possibly proceeding with EGD and colonoscopy to rule out source of GI bleed for iron deficiency anemia, patient is refusing any endoscopic evaluation at this time. 7. Repeat CBC tomorrow, transfuse for hemoglobin less than 7 Thank you for this consultation, we will continue to follow. Dr. Marily Lamar I agree with the dictator's note, documented as a scribe by Leticia Win.
[2021-09-04 17:23] VITALS: BP 155/76; PULSE 76; RESP 18; TEMP 98.1
[2021-09-04 21:25] LABS: Folate, Serum 6.7 ng/mL (4.40-31.00)
--- NOTE | 2021-09-05 08:17 | P.PN ---
Subjective Progress Note Date: 09/05/21 Principal diagnosis: Weakness, iron deficiency anemia 76-year-old female who was transferred here from [facility] after experiencing chest pain was noted to be anemic with a hemoglobin of 9.1 with a mild decrease to 7.9. Patient denies any signs or symptoms of GI bleed. Last colonoscopy was approximately 4-5 years ago in [place]. Iron studies was consistent with iron deficiency anemia, she received 1 dose of IV iron yesterday. She continues to deny any black stool or blood in her stool. She denies any abdominal pain, nausea, or vomiting. Morning labs are currently pending. She declined any endoscopic evaluation during this hospitalization. Objective - Vital Signs Vital signs: Vital Signs Temp 98.1 F 09/04/21 15:50 Pulse 76 09/04/21 15:50 Resp 18 09/04/21 15:50 BP 155/76 09/04/21 15:50 Pulse Ox 97 09/04/21 15:50 Intake & Output 09/04/21 09/05/21 09/05/21 18:59 06:59 18:59 Intake Total 690 Output Total 700 Balance -10 Intake: Oral 690 Output: Urine 700 Other: Voiding Method Bedside Commode # Bowel Movements 1 - Exam General appearance: The patient is alert, oriented, appears in no acute distress. HET: Head is normocephalic and atraumatic. Conjunctiva pink. Sclera anicteric. Neck: Supple without lymphadenopathy. Abdomen: Soft, nontender, nondistended with bowel sounds. No guarding or rigidity. Extremities: Normal skin color and turgor. No pedal edema Skin: No rashes, no jaundice Neurological: No focal deficits. Alert and oriented 3. - Labs CBC & Chem 7: 09/03/21 20:35 09/03/21 06:54 Labs: Abnormal Lab Results - Last 24 Hours (Table) 09/04/21 09/04/21 Range/Units 11:32 12:48 POC Glucose (mg/dL) 134 H 142 H (75-99) mg/dL Assessment and Plan (1) Iron deficiency anemia Narrative/Plan: This is a 76-year-old female who presented to [facility] with complaints of chest pain and was subsequently transferred to this hospital. Patient has significant past medical history including coronary artery disease with multiple stents not currently on any anticoagulation as well as recent CVA with residual dysphagia. Patient was noted to have a hemoglobin of 9.1 on admission with a slight drop to 7.9 yesterday. No signs or symptoms of GI bleed. She denies any hematemesis, coffee-ground emesis, melena or hematochezia. Iron studies were completed on patient that showed an iron level of 24 consistent with iron deficiency anemia. Patient states she had a colonoscopy or 5 years ago in [place]. She is refusing at this time any endoscopic evaluation, and states that if she were to undergo EGD or colonoscopy she would want it to be done in [place]. Status: Acute Code(s): D50.9 - IRON DEFICIENCY ANEMIA, UNSPECIFIED SNOMED Code(s): 11959021 (2) Dysphagia due to old cerebrovascular accident Narrative/Plan: Patient has PEG tube, currently not in use. Speech therapy on consult and recommending pured diet with thickened liquids, advance to dysphagia level III Diet. Status: Acute Code(s): I69.391 - DYSPHAGIA FOLLOWING CEREBRAL INFARCTION SNOMED Code(s): 706845575 Plan: 1. Continue symptomatic supportive care 2. Continue diet as recommended by speech therapy 3. Iron studies reviewed, will order ferritin 4. Continue Protonix for GI prophylaxis 5. Discussed with patient possibly proceeding with EGD and colonoscopy to rule out source of GI bleed for iron deficiency anemia, patient is refusing any endoscopic evaluation at this time. Thank you for this consultation, we will continue to follow. Dr. Marily Lamar I agree with the dictator's note, documented as a scribe by Leticia Win.
== END 2021-09-04 17:37 | disposition left against medical advice (07) | DRG 281 ==
LOC: EC 17:06 → 3SCARD 20:15
PROVIDERS: ADMIT Hospitalist; ATTEND Hospitalist
DX: I21.4 Non-ST elevation (NSTEMI) myocardial infarction (principal); I48.20 Chronic atrial fibrillation, unspecified; D50.9 Iron deficiency anemia, unspecified; E03.9 Hypothyroidism, unspecified; E11.9 Type 2 diabetes mellitus without complications; E78.5 Hyperlipidemia, unspecified; F17.200 Nicotine dependence, unspecified, uncomplicated; F32.9 Major depressive disorder, single episode, unspecified; F41.9 Anxiety disorder, unspecified; I25.2 Old myocardial infarction; I50.9 Heart failure, unspecified; I11.0 Hypertensive heart disease with heart failure; I25.10 Atherosclerotic heart disease of native coronary artery without angina pectoris; R56.9 Unspecified convulsions; R29.6 Repeated falls; Z95.5 Presence of coronary angioplasty implant and graft; Z93.1 Gastrostomy status; Z91.81 History of falling; Z85.3 Personal history of malignant neoplasm of breast; Z85.43 Personal history of malignant neoplasm of ovary; Z79.899 Other long term (current) drug therapy; Z79.82 Long term (current) use of aspirin; I69.398 Other sequelae of cerebral infarction; I69.391 Dysphagia following cerebral infarction; I69.341 Monoplegia of lower limb following cerebral infarction affecting right dominant side; I69.328 Other speech and language deficits following cerebral infarction; Z82.49 Family history of ischemic heart disease and other diseases of the circulatory system
CPT/HCPCS: 36415; 70450; 71046; 74230; 80048; 80053; 82607; 82746; 83036; 83540; 83550; 83735; 84484; 85025; 85027; 85610; 85730; 93005; 93306; 94760; 95819; 99285